=== PATIENT | male | born 1975 | race African-American/Black ===

== ENCOUNTER 2024-02-28 13:57 | Outpatient (AMB) | payer MEDICARE, MEDICAID, SELFPAY ==
--- NOTE | 2024-02-28 14:05 | HO.SPINEOV ---
Intake Visit Reasons: Back pain and right hand numbness Intake Note: Mr. Kelly is here today c/o back pain and right hand numbness. Domain Architect Required: No Assessment & Plan Assessment & Plan (1) Cervical radiculopathy: Code(s): M54.12 - Radiculopathy, cervical region Category: Medical (2) Neuroforaminal stenosis of cervical spine: Code(s): M48.02 - Spinal stenosis, cervical region Category: Medical (3) Status post cervical spinal fusion: Code(s): Z98.1 - Arthrodesis status Category: Surgical Plan Dear colleague Thank you for referring Hilario Kelly to the office today with a chief complaint of predominantly right arm pain and numbness. HPI: This 48-year-old male underwent a C5-6 anterior diskectomy and fusion in 2019 with good success. He returns to my clinic with progressive symptoms of numbness and pain in predominantly the right arm. Specifically he complains of pain in his shoulder blade and in his axilla and a constant numbness in his right arm involving his whole arm and hand. He also drops objects. The left arm goes intermittently numb, especially at night. He denies symptoms of his lower extremities. Physical Exam: Pleasant male. Spurling sign produces pain in the right shoulder blade and neck Tinel is negative. Lhermitte sign is negative. Motor exam is 5/5, sensory exam is grossly intact. No hyperreflexia or pathological reflexes. Gait is undisturbed. Radiological Studies: MRI done at [facility] on 02/08/2024 shows uncovertebral spurring at C3-4 with severe bilateral foraminal narrowing. At C6-7 there is bilateral moderate to severe C7 foraminal narrowing and at C7-T1 there is predominantly right C8 foraminal narrowing. Impression/Plan: This patient is suffering from a bilateral cervical radiculopathy, with the right side is much more involved than the left side. Clinically it points towards the C7 or C8 nerve root. The pain in the axilla may actually point more towards the C8 nerve root. I would like to obtain an EMG to see if we can localize the abnormalities to C7 or C8. The patient will return to my clinic when the study is done. He would be a good candidate for an artificial disc. Thank you for allowing me to participate in your patients care. total time spent was 50 minutes in counseling ,coordination of plan, personal review of imaging, surgical decision making and subsequent plan Bayron Mullins MD, PhD Spine Fellowship Trained Neurosurgeon Director, [facility] [place] [facility] Coding Level of Care Code New Pt Level 4 (52021) Diagnoses Cervical radiculopathy M54.12 Neuroforaminal stenosis of cervical spine M48.02 Status post cervical spinal fusion Z98.1
== END 2024-02-28 14:57 | disposition home or self-care (01) ==
LOC: HO.HNS 14:04
PROVIDERS: PCP Physician Assistant Medical; Visit Provider Neurological Surgery
DX: M54.12 Radiculopathy, cervical region (principal); M48.02 Spinal stenosis, cervical region; Z98.1 Arthrodesis status
CPT/HCPCS: 99204

== ENCOUNTER → 2024-02-28 14:04 | Outpatient (BNVA) | payer MEDICARE, MEDICAID, SELFPAY | PROVIDERS: PCP Physician Assistant Medical; Visit Provider Neurological Surgery | DX: M48.02 Spinal stenosis, cervical region (principal); M54.12 Radiculopathy, cervical region; Z98.1 Arthrodesis status | CPT/HCPCS: 99202 ==

== ENCOUNTER 2024-03-12 10:04 | Outpatient (REF) | payer MEDICARE, MEDICAID, SELFPAY ==
--- NOTE | 2024-03-12 10:06 | EMG_ITS ---
Right median and ulnar motor and sensory studies were performed. Right radial sensory and median and lateral antecubital brachial sensory studies were performed and needle examination was performed. IMPRESSION: [id number] right median neuropathy across carpal tunnel. MD MIREILLE Mauricio/ROBERTA / [id number]
== END 2024-03-12 10:05 | disposition home or self-care (01) ==
LOC: HO.NEURO 10:04
PROVIDERS: PCP Physician Assistant Medical; Visit Provider Neurological Surgery
DX: M54.12 Radiculopathy, cervical region (principal); M48.02 Spinal stenosis, cervical region
CPT/HCPCS: 95886; 95910

== ENCOUNTER → 2024-05-23 10:55 | Outpatient (BNV) | payer MEDICARE, MEDICAID, SELFPAY | PROVIDERS: PCP Physician Assistant Medical; Visit Provider Internal Medicine | DX: Z01.818 Encounter for other preprocedural examination (principal) | CPT/HCPCS: 93010 ==

== ENCOUNTER 2024-05-31 14:32 | Outpatient (AMB) | payer MEDICARE, MEDICAID, SELFPAY ==
--- NOTE | 2024-05-31 14:40 | A.SPINEOV_ITS ---
Intake Visit Reasons: Discuss Surgery Intake Note: Mr. Kelly is here to discuss surgery. Banquet Server Required: No Allergies No Known Allergies Allergy (Verified 05/22/24 14:16) Coding
--- NOTE | 2024-05-31 14:56 | HO.SPINEOV ---
Intake Visit Reasons: Discuss Surgery Allergies No Known Allergies Allergy (Verified 05/22/24 14:16) Assessment & Plan Assessment & Plan (1) Cervical radiculopathy: Code(s): M54.12 - Radiculopathy, cervical region Category: Medical Plan Dear colleague, On 05/31/2024 I saw for preoperative visit Varsha Kelly. He is scheduled to undergo total disc arthropathy C6-7 on June 06. We went over the procedure possible complications and expected postoperative course. I made clear that the weakness in his hand may not improve. All questions were answered satisfactorily. I spent 20 minutes in his consult. Bayron Mullins MD, PhD Spine Fellowship Trained Neurosurgeon Director, [facility] [place] [facility] Coding Level of Care Code Est Pt Level 2 (69995) Diagnoses Cervical radiculopathy M54.12
== END 2024-05-31 15:01 | disposition home or self-care (01) ==
PROVIDERS: PCP Physician Assistant Medical; Visit Provider Neurological Surgery
DX: M54.12 Radiculopathy, cervical region (principal)
CPT/HCPCS: 99212

== ENCOUNTER → 2024-05-31 14:32 | Outpatient (BNVA) | payer MEDICARE, MEDICAID, SELFPAY | PROVIDERS: PCP Physician Assistant Medical; Visit Provider Neurological Surgery | DX: M54.12 Radiculopathy, cervical region (principal) | CPT/HCPCS: 99212 ==

== ENCOUNTER 2024-06-06 07:54 | Day surgery (SDC) | payer MEDICARE, MEDICAID, SELFPAY ==
--- NOTE | 2024-05-23 | ECG_ITS ---
Test Reason : pre op Blood Pressure : / mmHG Vent. Rate : 066 BPM Atrial Rate : 066 BPM P-R Int : 140 ms QRS Dur : 070 ms QT Int : 374 ms P-R-T Axes : 061 059 063 degrees QTc Int : 392 ms Normal sinus rhythm Normal ECG No previous ECGs available Referred By: Tatiana Funes Electronically Signed By:CHRYSTAL BEEBE
[2024-05-23 10:00] VITALS: BP 169/88; PULSE 77; RESP 20; O2SAT 100; BMI 30.6
--- NOTE | 2024-05-23 10:20 | P.CONAN_ITS ---
Documented by User: Tatiana Funes NP 06/04/24 14:13 HPI - Anesthesia Eval Consult details Narrative: 49yo M for C6-7 Cervical Total Disc Arthroplasty RADHA: No CPAP Smoker: ~ 6 cigs daily ETOH: 6 beers daily. Instructed slow decrease preop. GERD: ppi covers PMFSH Active Problems Active Problems: All Active Problems Status post cervical spinal fusion (Acute) Neuroforaminal stenosis of cervical spine (Acute) Cervical radiculopathy (Acute) Past Medical History Medical History Alcohol use disorder Eczema Sleep apnea Tobacco use disorder GERD (gastroesophageal reflux disease) Hx of flexible sigmoidoscopy Diverticulitis Elevated cholesterol HTN (hypertension) Family History Family history of problems with anesthesia: No Surgical History Surgical History Hx of cervical discectomy H/O colonoscopy History of colon resection Hx of hand surgery Hx of fusion of cervical spine History of Problems with Anesthesia: No Social History Social History Are you a primary rn care transition to a significant other at home: No Do you presently have visiting nurse or other home services: No Patient Tobacco Use Status: Current everyday Tobacco user Tobacco use type: Cigarette Cigarettes Per Day: 6 Years Smoked: 30 Use of substances other than those prescribed or required for medical reasons: Yes Substance Use Frequency: Occasionally Have you been hit, kicked, punched, or otherwise hurt by someone within the past year? If so, by whom?: No Are you DNR?: No Advance Directives Information Provided: Yes (as above noted) Advance Directives on File: No Recently lost weight without trying: No Nutrition Risks: No Nutritional Risk Poor oral hygiene: No (upper & lower partials) Meds Allergies Allergy/AdvReac Type Severity Reaction Status Date / Time No Known Allergies Allergy Verified 05/22/24 14:16 Home Medications ?Medication ?Instructions ?Recorded ?Confirmed ?Last Taken ?Type amlodipine 10 mg tablet 10 mg PO QAM 05/22/24 05/23/24 06/06/24 History atorvastatin 80 mg tablet 80 mg PO QAM 05/22/24 05/23/24 Unknown History cyclobenzaprine 10 mg tablet 10 mg PO TID PRN muscle spasm 05/22/24 05/23/24 Unknown History fluticasone propionate 50 2 spray intranasal QAM PRN Nasal 05/22/24 05/23/24 Unknown History mcg/actuation nasal Congestion spray,suspension gabapentin 300 mg capsule 300 mg PO BID 05/22/24 05/23/24 Unknown History losartan 25 mg tablet 25 mg PO QAM 05/22/24 05/23/24 Unknown History oxycodone-acetaminophen 5 mg-325 1 tab PO Q6H PRN Pain 05/22/24 05/23/24 History mg tablet pantoprazole 20 mg tablet,delayed 20 mg PO QAM 05/22/24 05/23/24 06/06/24 History release betamethasone dipropionate 0.05 % 1 appl topical BID 05/23/24 05/23/24 Unknown History topical cream Exam Height,Weight and Vital Signs: Height 6 ft Weight 102.3 kg Last Vital Signs Pulse 77 05/23/24 10:00 Resp 20 05/23/24 10:00 BP 169/88 H 05/23/24 10:00 Pulse Ox 100 05/23/24 10:00 O2 Del Method Room Air 05/23/24 10:00 Pertinent Lab Results Pertinent Lab Results: Lab Results 05/23/24 Range/Units 10:50 WBC 10.6 (4.8-10.8) X10*3/uL RBC 5.00 (4.60-5.80) X10*6/uL Hgb 14.8 (14.0-18.0) g/dl Hct 44.0 (42.0-52.0) % MCV 88.0 (80.0-98.0) fL MCH 29.6 (27.0-33.0) pg MCHC 33.6 (31.0-36.0) g/dl RDW 14.8 (11.0-16.0) % Plt Count 353 (160-400) X10*3/uL MPV 10.3 (9.4-12.4) fL Absolute Nucleated RBC 0.000 (0.0-0.012) X10*3/uL Nucleated RBC % (auto) 0.0 (0.0-0.2) /100WBC Sodium 139 (135-145) mmol/L Potassium 4.1 (3.3-5.1) mmol/L Chloride 104 (96-108) mmol/L Carbon Dioxide 28 (22-29) mmol/L Anion Gap 11 L (12-20) BUN 12 (9-16) mg/dL Creatinine 0.91 (0.5-1.4) mg/dL Estim Creat Clear Calc 121.5 Estimated GFR > 60 Random Glucose 100 (60-115) mg/dL Calcium 9.8 (8.4-10.2) mg/dL Narrative Narrative: EKG 05/2024 Vent. Rate : 066 BPM Atrial Rate : 066 BPM P-R Int : 140 ms QRS Dur : 070 ms QT Int : 374 ms P-R-T Axes : 061 059 063 degrees QTc Int : 392 ms Normal sinus rhythm Normal ECG No previous ECGs available Airway Mallampati Class: II TM Dist: >3cm Neck ROM: Limited Partial: Upper and Lower Heart: RRR Lungs: CTAB Assessment and Plan Assessment Anesthesia Assessment: Anesthesia Plan Discussed, Smoking Cess. Discussed and PAT Visit Final Anesthetic Review Family History of Problems with Anesthesia: No History of Problems with Anesthesia: No Documented by User: Yael Rivas MD 06/06/24 09:32 [facility] Past Medical History Medical History Alcohol use disorder Eczema Sleep apnea Tobacco use disorder GERD (gastroesophageal reflux disease) Hx of flexible sigmoidoscopy Diverticulitis Elevated cholesterol HTN (hypertension) Surgical History Surgical History Hx of cervical discectomy H/O colonoscopy History of colon resection Hx of hand surgery Hx of fusion of cervical spine Social History Social History Are you a primary rn care transition to a significant other at home: No Do you presently have visiting nurse or other home services: No Patient Tobacco Use Status: Current everyday Tobacco user Tobacco use type: Cigarette Cigarettes Per Day: 6 Years Smoked: 30 Use of substances other than those prescribed or required for medical reasons: Yes Substance Use Frequency: Occasionally Have you been hit, kicked, punched, or otherwise hurt by someone within the past year? If so, by whom?: No Are you DNR?: No Advance Directives Information Provided: Yes (as above noted) Advance Directives on File: No Recently lost weight without trying: No Nutrition Risks: No Nutritional Risk Poor oral hygiene: No (upper & lower partials) Meds Allergies Allergy/AdvReac Type Severity Reaction Status Date / Time No Known Allergies Allergy Verified 05/22/24 14:16 Home Medications ?Medication ?Instructions ?Recorded ?Confirmed ?Last Taken ?Type amlodipine 10 mg tablet 10 mg PO QAM 05/22/24 05/23/24 06/06/24 History atorvastatin 80 mg tablet 80 mg PO QAM 05/22/24 05/23/24 Unknown History cyclobenzaprine 10 mg tablet 10 mg PO TID PRN muscle spasm 05/22/24 05/23/24 Unknown History fluticasone propionate 50 2 spray intranasal QAM PRN Nasal 05/22/24 05/23/24 Unknown History mcg/actuation nasal Congestion spray,suspension gabapentin 300 mg capsule 300 mg PO BID 05/22/24 05/23/24 Unknown History losartan 25 mg tablet 25 mg PO QAM 05/22/24 05/23/24 Unknown History oxycodone-acetaminophen 5 mg-325 1 tab PO Q6H PRN Pain 05/22/24 05/23/24 06/06/24 History mg tablet pantoprazole 20 mg tablet,delayed 20 mg PO QAM 05/22/24 05/23/24 06/06/24 History release betamethasone dipropionate 0.05 % 1 appl topical BID 05/23/24 05/23/24 Unknown History topical cream Assessment and Plan Final Anesthetic Review NPO: Yes ASA Class: III Final Preanesthetic Review: No Changes in Pt Med Stat, Meds/Allgs Chart Reviewed, Consent Obtained/Reviewed and Anes Risks/Benef Reviewed Patient Risk: Intermediate Procedure Risk: Intermediate Anesthetic Plan Anesthetic Plan: GA Disposition: Standard PACU
[2024-05-23 11:46] LABS: Hemoglobin 14.8 g/dl (14.0-18.0); Mean Corpuscular HGB Conc 33.6 g/dl (31.0-36.0); Mean Corpuscular Hemoglobin 29.6 pg (27.0-33.0); Mean Platelet Volume 10.3 fL (9.4-12.4); Platelet Count 353 X10*3/uL (160-400); Red Cell Distribution Width 14.8 % (11.0-16.0); White Blood Count 10.6 X10*3/uL (4.8-10.8)
[2024-05-23 12:19] LABS: Anion Gap 11 (12-20); Blood Urea Nitrogen 12 mg/dL (9-16); Calcium 9.8 mg/dL (8.4-10.2); Carbon Dioxide 28 mmol/L (22-29); Chloride 104 mmol/L (96-108); Creatinine Clr Calc Pharmacy 121.5; Estimated Glomerular Filt Rate > 60; Glucose Random 100 mg/dL (60-115); Potassium 4.1 mmol/L (3.3-5.1); Sodium 139 mmol/L (135-145)
[2024-06-06] VITALS (17 sets, daily range): BP systolic 158–182; BP diastolic 85–102; PULSE 72–107; RESP 0–22; TEMP 36.5–37.3; O2SAT 93–100; BMI 30.1
--- NOTE | 2024-06-06 07:07 | P.DS_ITS ---
DS: Providers Provider Date of Service: 06/06/24 Date of discharge: 06/06/24 Primary care physician: MAURICIO Rocha Admitting clinician: Bayron Mullins DS: Diagnosis Discharge Diagnosis (1) Neuroforaminal stenosis of cervical spine: Status: Acute DS: Summary Time Attestation Discharge Coordination Time (in mins): 7 Quality: Safe Use of Opioids Does Pt have an Active Cancer Diagnosis on the Problem List?: No Quality: Stroke Does the patient have a stroke diagnosis?: No Physical Exam Vital Signs: Vital Signs: Last Vital Signs Pulse 77 05/23/24 10:00 Resp 20 05/23/24 10:00 BP 169/88 H 05/23/24 10:00 Pulse Ox 100 05/23/24 10:00 O2 Del Method Room Air 05/23/24 10:00 BMI result Body Mass Index 30.6 Discharge Plan Discharge Patient Disposition: Home, Self-Care Referrals: Otoniel Zepeda PA [Primary Care Provider] - 1 Week Discharge Medications: Continued cyclobenzaprine 10 mg tablet 10 mg PO TID PRN (Reason: muscle spasm) atorvastatin 80 mg tablet 80 mg PO QAM pantoprazole 20 mg tablet,delayed release (DR/EC) 20 mg PO QAM amlodipine 10 mg tablet 10 mg PO QAM losartan 25 mg tablet 25 mg PO QAM gabapentin 300 mg capsule 300 mg PO BID fluticasone propionate 50 mcg/actuation spray,suspension 2 spray intranasal QAM PRN (Reason: Nasal Congestion) betamethasone dipropionate 0.05 % cream 1 appl topical BID Held oxycodone-acetaminophen 5-325 mg tablet 1 tab PO Q6H PRN (Reason: Pain) Hold Instructions: Resume on 07/07/24. Discharge Orders: Discharge Order (Routine); Ordered 06/06/24 Ordered By: Andrei Hunter Diet: Advance to usual diet Activity on Discharge: As tolerated Activity Restrictions/Additional Instructions: After your spinal surgery we ask you to observe the following restrictions/guidelines: Activity: It is normal to feel some discomfort as you increase your activity, but that will improve with time. We ask you avoid heavy lifting or acitivities that cause pain. As a general rule, 8lbs is a safe limit for lifting right after surgery. Walk as much as you feel comfortable but not to exhaustion. You will feel extra tired the first few days after surgery. Stay well hydrated. It is OK to walk up and down stairs You may return to driving when you are off narcotics (such as vicodin, oxycodone, dilaudid, etc), and you are back to normal functional capacity. If you have any concerns please check with office before driving. Return to work is specific to each patient and each surgery, so please speak with your doctor/PA at first follow up. Please bring paperwork such as FMLA at that time if you need it filled out. Medications: Please continue taking the 5mg Percocet that was prescribed on 05/23/24 for a total quantity of 112 (28 days worth). In addition to this for optimum pain control, it is best to start with a combination of 500 mg of Tylenol every 4 hours with 600 mg of Motrin every 8 hours, and use narcotics as needed in between for breakthrough pain. We will give you a short supply of narcotics after surgery (usually one weeks worth). If you need more please call the office but do not use more than prescribed. You will need to give our office 48 hours notice if you need narcotics refilled and we do not fill narcotics on weekends or evenings. If you are on a narcotic, it is a good idea to take a stool softener such as colace or senna to avoid constipation If you take blood thinner such as aspirin, Plavix, Coumadin, Effient, Eliquis etc for conditions such as Afib, DVT, Pulmonary embolus, coronary disease, stents etc please speak with your surgeon about specific details as to when you can resume these medications. You can resume NSAIDs on post op day 1 (eg: Motrin, Naproxen, etc). Follow up: Please call the office, , after surgery to arrange a 3 week follow up for wound check. Wound Care: You may remove your dressing on the first day after surgery. ?You may ?leave open to air. Please do not remove the steri strips underneath. they will fall off on their own in one week. IT IS NORMAL FOR THE WOUND TO OOZE OR BE BLOODY FOR A FEW DAYS AFTER SURGERY. ?IF THIS HAPPENS JUST PLACE NEW DRESSING OVER IT TO AVOID STAINING CLOTHES. You may shower on post op day # 1 We ask that you do not let the water soak the wound. If it does get wet, just towel dry lightly. Please do not scrub your incision or place any type of chemical/ointment on the wound. No tub baths, pools or jacuzzis for one month. If you have any leaking or redness from your wound, or fevers, please call office Print Language: Norwegian Discharge Date/Time: 06/06/24 14:40
[2024-06-06] MEDS: Lactated Ringers 1,000 ML 100 ML IVCONT (08:35)
[2024-06-06] MEDS: Gabapentin 300 MG CAPSULE PO (08:41)
[2024-06-06] MEDS: methocarbamoL 750 MG TABLET PO (08:41)
--- NOTE | 2024-06-06 09:20 | MHC.SHP ---
Pre-Procedural Eval Section A - 24 Hr Update-Section A only Date of Service: 06/06/24 The patient is an INPATIENT: No Section B - Complete if H&P > 30 days Chief Complaint: Arthrodesis status,radiculopathy, Details of Present Illness: cervical radiculopathy Allergies: Allergies Allergy/AdvReac Type Severity Reaction Status Date / Time No Known Allergies Allergy Verified 05/22/24 14:16 Review of Systems Sugical H&P ROS: Negative: Constitution, Cardiovascular, Respiratory, Neurological, Psychiatric, Hem-Onc, Allergic/Immunologic, Gastrointestinal, Genitourinary, Integumentary, Endocrine and Eyes/Ears/Nose/Throat and Yes, Specify: Musculoskeletal (handweakness) Exam Surgical H&P Exam: Normal: HEENT, Normal: Heart, Normal: Lungs, Normal: Extremities, Normal: Abdomen and Normal: Skin and Significant Findings: Neurological (right handweakness) Plan Diagnosis/Plan: Unchanged I have reviewed the history and physical and performed a pertinent physical examination on my patient. No changes have occurred unless specified. Total disc arthroplasty C6-7 Time Spent With Patient Time: Total time managing care of this patient today __5__ minutes.
--- NOTE | 2024-06-06 12:06 | PM.DS ---
DS: Providers Provider Date of Service: 06/06/24 Primary care physician: MAURICIO Rocha DS: Diagnosis Discharge Diagnosis (1) Neuroforaminal stenosis of cervical spine: Status: Acute DS: Summary Time Attestation Discharge Coordination Time (in mins): 15 Quality: Safe Use of Opioids Does Pt have an Active Cancer Diagnosis on the Problem List?: No Quality: Stroke Does the patient have a stroke diagnosis?: No Physical Exam Vital Signs: Vital Signs: Last Vital Signs Temp 99.2 F 06/06/24 08:27 Pulse 107 H 06/06/24 08:27 Resp 16 06/06/24 08:27 BP 166/91 H 06/06/24 08:27 Pulse Ox 99 06/06/24 08:27 O2 Del Method Room Air 06/06/24 08:27 BMI result Body Mass Index 30.1 Discharge Plan Discharge Patient Disposition: Home, Self-Care Referrals: Otoniel Zepeda PA [Primary Care Provider] - 1 Week Discharge Medications: Continued cyclobenzaprine 10 mg tablet 10 mg PO TID PRN (Reason: muscle spasm) atorvastatin 80 mg tablet 80 mg PO QAM pantoprazole 20 mg tablet,delayed release (DR/EC) 20 mg PO QAM amlodipine 10 mg tablet 10 mg PO QAM losartan 25 mg tablet 25 mg PO QAM gabapentin 300 mg capsule 300 mg PO BID fluticasone propionate 50 mcg/actuation spray,suspension 2 spray intranasal QAM PRN (Reason: Nasal Congestion) betamethasone dipropionate 0.05 % cream 1 appl topical BID Held oxycodone-acetaminophen 5-325 mg tablet 1 tab PO Q6H PRN (Reason: Pain) Hold Instructions: Resume on 07/07/24. Discharge Orders: Discharge Order (Routine); Ordered 06/06/24 Ordered By: Andrei Hunter Diet: Advance to usual diet Activity on Discharge: As tolerated Activity Restrictions/Additional Instructions: After your spinal surgery we ask you to observe the following restrictions/guidelines: Activity: It is normal to feel some discomfort as you increase your activity, but that will improve with time. We ask you avoid heavy lifting or acitivities that cause pain. As a general rule, 8lbs is a safe limit for lifting right after surgery. Walk as much as you feel comfortable but not to exhaustion. You will feel extra tired the first few days after surgery. Stay well hydrated. It is OK to walk up and down stairs You may return to driving when you are off narcotics (such as vicodin, oxycodone, dilaudid, etc), and you are back to normal functional capacity. If you have any concerns please check with office before driving. Return to work is specific to each patient and each surgery, so please speak with your doctor/PA at first follow up. Please bring paperwork such as FMLA at that time if you need it filled out. Medications: Please continue taking the 5mg Percocet that was prescribed on 05/23/24 for a total quantity of 112 (28 days worth). In addition to this for optimum pain control, it is best to start with a combination of 500 mg of Tylenol every 4 hours with 600 mg of Motrin every 8 hours, and use narcotics as needed in between for breakthrough pain. We will give you a short supply of narcotics after surgery (usually one weeks worth). If you need more please call the office but do not use more than prescribed. You will need to give our office 48 hours notice if you need narcotics refilled and we do not fill narcotics on weekends or evenings. If you are on a narcotic, it is a good idea to take a stool softener such as colace or senna to avoid constipation If you take blood thinner such as aspirin, Plavix, Coumadin, Effient, Eliquis etc for conditions such as Afib, DVT, Pulmonary embolus, coronary disease, stents etc please speak with your surgeon about specific details as to when you can resume these medications. You can resume NSAIDs on post op day 1 (eg: Motrin, Naproxen, etc). Follow up: Please call the office, , after surgery to arrange a 3 week follow up for wound check. Wound Care: You may remove your dressing on the first day after surgery. ?You may ?leave open to air. Please do not remove the steri strips underneath. they will fall off on their own in one week. IT IS NORMAL FOR THE WOUND TO OOZE OR BE BLOODY FOR A FEW DAYS AFTER SURGERY. ?IF THIS HAPPENS JUST PLACE NEW DRESSING OVER IT TO AVOID STAINING CLOTHES. You may shower on post op day # 1 We ask that you do not let the water soak the wound. If it does get wet, just towel dry lightly. Please do not scrub your incision or place any type of chemical/ointment on the wound. No tub baths, pools or jacuzzis for one month. If you have any leaking or redness from your wound, or fevers, please call office Print Language: Azerbaijani
--- NOTE | 2024-06-06 12:09 | P.OP_ITS ---
Operative Note Operative Note Date of Service: 06/06/24 Narrative: Preoperative Diagnosis: Right Cervical radiculopathy with hand weakness Procedure : C6-7 total disc arthropathy Informed Consent was obtained for this operation. I have explained the nature, purpose and benefits of the operation. I have discussed the risks and benefit of the operation including possible complications or adverse events with patient/family. Alternative(s) were discussed with the patient with their re lative benefits and risks as well as the consequences of not accepting the operation were included in obtaining consent. Surgeon: MENDEL NO MD, PHD Procedure Assisted By: madelyn Grover Description of Procedure: This patient is suffering from right arm pain and right hand weakness. The MRI shows adjacent degenerative disc disease after a C5-C6 fusion with [id number] foraminal stenosis The patient was offered a total disc arthropathy C6-7. The procedure complications were explained. The patient was consented. The patient was brought to the operating room and endotracheally intubated. The patient was put in supine position with slight extension of the neck. Prep and drape was done followed by timeout. A mid cervical incision was made followed by opening of the platysma. The prevertebral fascia was reached following the natural planes while the physician assistant toddler teacher provided manual retraction. The prevertebral fascia was opened to expose the disc space. A spina l needle was placed in the disk space to confirm the correct level with xray. The longus colli muscles were released bilaterally and a self retaining retractor was inserted. Two Balm pins were placed in the C6 and C7 vertebral bodies parallel to the endplates and distraction was give over the interspace. The discectomy was completed toward the posterior annulus of the disc. The microscope was brought in. The remainder of the discectomy was completed. The posterior ligament was opened and resected to expose the underlying dura. Bilateral foraminotomies were done. A trial implant was inserted to determine the correct implant size is. Then an artificial disc of sentinel spine of 17 x 16 and 6 mm height was inserted under fluoroscopic guidance. Final x-rays in AP and lateral projection showed a satisfactory position of the implant. The physician assistant toddler teacher took over. The Balm pin was removed. Hemostasis was done. He closed the incision in 2 layers with a 3-0 Vicryl. Steri-Strips used to approximate incision. An OpSite with Tegaderm was used to cover the incision. All sponge and needle counts were correct. Patient was extubated and transported in stable is to recovery room. Anesthesia: General Estimated Blood Loss (ml): 30 mL Duration of Surgery: 60 minutes Postoperative Plan: Discharge home Complications: None
[2024-06-06] MEDS: HYDROmorphone HCl 0.5 MG/0.5 ML SYRINGE 0.25 MG IVPUSH ×8 (12:54→13:31)
[2024-06-06] MEDS: oxyCODONE HCl Immed Release 5 MG TABLET PO (13:46)
== END 2024-06-06 14:40 | disposition home or self-care (01) ==
LOC: HO.SSS 07:55
PROVIDERS: Nurse Practitioner; PCP Physician Assistant Medical; Visit Provider Neurological Surgery
PROC: (CPT 22856; principal; 2024-06-06 11:10)
DX: M54.12 Radiculopathy, cervical region (principal); Z98.1 Arthrodesis status; G89.29 Other chronic pain; I10 Essential (primary) hypertension; G47.33 Obstructive sleep apnea (adult) (pediatric); Z79.51 Long term (current) use of inhaled steroids; Z79.899 Other long term (current) drug therapy; F17.210 Nicotine dependence, cigarettes, uncomplicated
CPT/HCPCS: 22856; 36415; 80048; 85027; 93005; C1776; J0131; J0690; J1100; J1170; J2250; J2405; J2704; J3010

== ENCOUNTER → 2024-06-06 07:54 | Outpatient (BNV) | payer MEDICARE, MEDICAID, SELFPAY | PROVIDERS: PCP Physician Assistant Medical; Visit Provider Physician Assistant | DX: M48.02 Spinal stenosis, cervical region (principal) | CPT/HCPCS: 22856; 99499 ==

== ENCOUNTER 2024-07-01 09:16 | Outpatient (AMB) | payer MEDICARE, MEDICAID, SELFPAY ==
--- NOTE | 2024-07-01 10:20 | HO.SPINEOV ---
Intake Visit Reasons: 1st post op Intake Note: Mr. Kelly is here today for his 1st post-op visit. Gas Or Petroleum Operator Required: No Allergies No Known Allergies Allergy (Verified 05/22/24 14:16) Assessment & Plan Assessment & Plan (1) Neuroforaminal stenosis of cervical spine: Code(s): M48.02 - Spinal stenosis, cervical region Category: Medical (2) Cervical radiculopathy: Code(s): M54.12 - Radiculopathy, cervical region Category: Medical Plan Mr kelly is three weeks out from his total disc arthroplasty C6-7. He is still continuing to have some symptoms, some of which are new since surgery. More recently he has developed a numbing feeling over the left subscapular area with pain radiating into that spot. He does not have any dysphagia, no trouble swallowing after surgery. He is continuing to hernandez with numbness of his arms however. Mostly it at night and if he wakes up he can shake his arms and it seems to go away. He did have a previous overlapping diagnosis of carpal tunnel in his right hand in addition to the cervical radiculopathy. We discussed activity guidelines, restrictions and expectations after total disc arthroplasty. I told him if he is still continuing to have the pain and the numbness radiating into his subscapular area on the left which is a new symptom since surgery, I would like to get x-rays in a few weeks if it is not getting better. If it improves, we can just do a standard office visit as 6 week follow-up with x-rays. Otoniel Mullins MD, PhD [facility] Orders: Orders XR cervical spine 4V Today M54.12 - Radiculopathy, cervical region Coding Level of Care Code Global (90324) Diagnoses Neuroforaminal stenosis of cervical spine M48.02 Cervical radiculopathy M54.12
== END 2024-07-01 10:39 | disposition home or self-care (01) ==
PROVIDERS: PCP Physician Assistant Medical; Visit Provider Physician Assistant
DX: M48.02 Spinal stenosis, cervical region (principal); M54.12 Radiculopathy, cervical region
CPT/HCPCS: 99024

== ENCOUNTER → 2024-07-01 09:16 | Outpatient (BNVA) | payer MEDICARE, MEDICAID, SELFPAY | PROVIDERS: PCP Physician Assistant Medical; Visit Provider Physician Assistant | DX: M48.02 Spinal stenosis, cervical region (principal); M54.12 Radiculopathy, cervical region; Z47.89 Encounter for other orthopedic aftercare; Z98.890 Other specified postprocedural states | CPT/HCPCS: 99212 ==

== ENCOUNTER 2024-08-15 08:45 | Outpatient (REF) | payer MEDICARE, MEDICAID, SELFPAY | END 2024-08-15 08:46 | disposition home or self-care (01) | LOC: HO.HOSX 08:45 | PROVIDERS: PCP Physician Assistant Medical; Visit Provider Physician Assistant | DX: M54.12 Radiculopathy, cervical region (principal); Z98.1 Arthrodesis status | CPT/HCPCS: 72050; 99212 ==

== ENCOUNTER 2024-08-15 08:45 | Outpatient (AMB) | payer MEDICARE, MEDICAID, SELFPAY ==
--- NOTE | 2024-08-15 08:56 | A.SPINEOV_ITS ---
Intake Visit Reasons: 2nd post op with xrays Intake Note: Mr. Kelly is here today for his 2nd post op with xrays. Plc Engineer Required: No Allergies No Known Allergies Allergy (Verified 08/15/24 08:57) Assessment & Plan Assessment & Plan (1) Status post cervical spinal fusion: Code(s): Z98.1 - Arthrodesis status Category: Surgical Plan Procedure : C6-7 total disc arthropathy Hilario comes in today for his 2nd postoperative visit. To recap during his last visit he was reporting a numbing feeling over the left subscapular area with pain radiating into that spot, alongside numbness in his bilateral arms. Today, he reports good resolution of his previously documented symptoms. He states he still has some pain into the left shoulder/lateral left neck but feels this is also getting better with time. We discussed his difficulties with hand artificial flowers supervisor on the right side, he has known moderate carpal tunnel syndrome on the right. No new neurological deficits. The patient ambulates well and rises from a seated position without difficulty. His anterior incision site appears closed and well healing. There is no need for continued routine follow-up with Willy. I feel his residual symptoms will resolve in time. He is welcome to make a follow-up appointment with us to discuss a right-sided median nerve release if he would like to in the near future. Andrei Mullins MD,PhD [facility] Orders: Orders XR cervical spine 4V Today M54.12 - Radiculopathy, cervical region Coding Level of Care Code Global (10672) Diagnoses Status post cervical spinal fusion Z98.1
== END 2024-08-15 09:17 | disposition home or self-care (01) ==
LOC: HO.HNS 08:45
PROVIDERS: PCP Physician Assistant Medical; Visit Provider Physician Assistant
DX: Z98.1 Arthrodesis status (principal)
CPT/HCPCS: 99024

== ENCOUNTER 2024-12-25 14:19 | Outpatient (AMB) | payer MEDICARE, MEDICAID, SELFPAY ==
--- NOTE | 2024-12-25 14:51 | A.SPINEOV_ITS ---
Intake Visit Reasons: f/up evaluation cervical spine concerns Intake Note: Mr. Kelly is here today for a F/u of his cervical spine. Electrical Contractor Required: No Allergies No Known Allergies Allergy (Verified 08/15/24 08:57) Assessment & Plan Assessment & Plan (1) Neuroforaminal stenosis of cervical spine: Code(s): M48.02 - Spinal stenosis, cervical region Category: Medical Plan Dear colleague, On 12/25/2024, I saw for follow-up Hilario Kelly. He was complaining of bila teral cervical radiculopathy and right hand weakness for which he underwent a total disc arthropathy C6-15 May 2024. The left-sided symptoms disappeared. However, the weakness of his right hand continues to progress. Specifically, he has difficulty using his thumb and opening bottles. He also complains of cramps on the medial side of his lower arm and hand. He also has tingling and numbness of all fingers. On exam, Tinel is negative over the elbow and wrist. There is atrophy of the abductor pollicis muscle on the right side. Motor exam shows 4+ out of 5 weakness of the wrist extension, 4/5 weakness of the finger flexors, 4+ out of 5 of finger spreaders and a 3/5 of the abductor pollicis. Differential diagnosis would be C7, C8 cervical radiculopathy versus plexopathy. We have an EMG that only showed median nerve compression but no plexopathy. A hand surgeon gave him a steroid injection in the carpal tunnel without success. I think his symptoms are most likely related to the cervical spine. I would like to repeat an MRI of the cervical spine and follow-up. Spent 25 minutes in his consult for physical exam and discussing plan of care. Bayron Mullins MD, PhD Spine Fellowship Trained Neurosurgeon Director, [facility] Orders: Orders MR cervical spine wo con Today Z98.1 - Arthrodesis status Coding Level of Care Code Est Pt Level 3 (27425) Diagnoses Neuroforaminal stenosis of cervical spine M48.02
--- OUTSIDE RECORDS SUMMARY | 2024-12-25 16:39 | XMS_ITS | Encounter Summary ---
Author Organization [facility] Address [address] [place] [address] Care Team Providers Care Pelletizer Operator Name Role Phone Otoniel Zepeda Primary Care Provider [phone] Reason for Visit * Reason Comments Follow-up Pain, numbness/tingl ing; limited strength Encounter Details Date Type Department Care Team (Late st Contact Info) Description 12/10/2024 2:00 PM EST Office Visit Orthopedic Surgery - [place] 175 [facility] [address] [place] [phone] Arely Rodrigues MD 175 [facility] [address] [place] [address] Cervical spinal stenosis (Primary Dx); Numbness and tingling in both hands Social History Tobacco Use Types Packs/Day Years Used Date Smoking Tobacco: Some Days Cigarettes 0.3 21.8 Started: 2003 Smokeless Tobacco: Never Alcohol Use Standard Drinks/Week Comments Yes 191.7 (1 standard drink = 0.6 oz pure alcohol) Sex and Gender Information Value Date Recorded Sex Assigned at Not on file Legal Sex Male 8:23 PM EST Gender Identity Not on file Sexual Orientation Not on file documented as of this encounter Last Filed Vital Signs Vital Sign Reading Time Taken Comments Blood Pressure - - Pulse - - Temperature - - Respiratory Rate - - Oxygen Saturation - - Inhaled Oxygen Concentration - - Weight 102 kg (225 lb) 12/10/2024 1:59 PM EST Height 182.9 cm (6') 12/10/2024 1:59 PM EST Body Mass Index 30.52 12/10/2024 1:59 PM EST documented in this encounter Progress Notes * Arely Rodrigues MD - 12/10/2024 2:00 PM EST CHIEF COMPLAINT/REASON FOR VISIT: Follow-up for numbness and tingling. SUBJECTIVE: Patient was last seen in October. He had a cortisone shot in October. He says did not really make much of a difference overall. I had taken care of him sometime ago. Patient had presented with some complaints of persistent numbness and tingling in the hands particular on the right side. Symptoms radiated up to the elbow he also had some weakness in the right hand. Patient has had a prior carpal tunnel release done sometime ago on the right but not on the left. In addition the patient has had 3 neck surgeries. The last of which was in May 2024. Patient had an EMG done in 2021 which noted mild carpal tunnel on the right that. He has not had a more recent study. OBJECTIVE: Patient continues to have intact flexion extension of the fingers and of the thumb on both hands. He does not have any visible evidence of swelling of any of the joints. Patient's finger flexion extension strength is reasonable. On the right side thumb and index pinch strength is 5 out of 5. He is able to flex and extend AB at that of the fingers and circumduct the thumb. Subjectively patient notes some tingling in the arm when he holds it in certain positions. Finger abduction adduction is 5 out of 5. Patient has a negative Tinel's and Phalen's. It does not make the subjective report of tingling that he has in his fingers any worse. In examining the other arm on the left patient is also having some sensory alteration although subjectively not as dense on the left as it is on the right. He is able to flex and extend abduct and adduct the fingers. He has no tenderness over the cubital canal is present. No palpable subluxation. No muscle atrophy of the forearms. Patient is able to flex extend the elbows. He can lift his arms up. With his neck he is able to turn to the left and to the right about 45 degrees. He states when he leaves his head when this positions for too long and starts to get some pain down his trapezial areas in both arms. ASSESSMENT: 1. Cervical spinal stenosis 2. Numbness and tingling in both hands Patient with persistent symptoms. Also some weakness. This seems to be more than just carpal tunnel. I will need to talk to the neurosurgeon. We will try to reach out. In the meantime I recommended that he make a follow-up for 6 weeks just so we keep him in the next. He is in agreement. Arely Rodrigues MD documented in this encounter Plan of Treatment Upcoming Encounters Date Type Department Care Team (Late st Contact Info) Description 01/06/2025 9:30 AM EDT Office Visit Adult Medicine [address] [phone] Annelise Novak PA [address] [place] [address] 01/21/2025 3:00 PM EDT Office Visit Orthopedic Surgery [facility] [address] [phone] Arely Rodrigues MD [address] [phone] 04/08/2025 8:30 AM EDT Office Visit [address] [phone] Otoniel Zepeda PA [address] [place] [address] documented as of this encounter Visit Diagnoses Diagnosis Cervical spinal stenosis- Primary Spinal stenosis in cervical region Numbness and tingling in both hands documented in this encounter Care Teams Pelletizer Operator Relationship Specialty Start Date End Date Otoniel Zepeda PA [address] [place] [address] PCP - General Internal Medicine 02/02/21 documented as of this encounter
--- OUTSIDE RECORDS SUMMARY | 2024-12-25 16:40 | XMS_ITS | Clinical Summary ---
Author Organization [address] [facility] Address [address] [place] [address] Phone Care Team Providers Care Manager Wound Name Role Phone Otoniel Zepeda Primary Care Provider [phone] Allergies No known active allergies Medications betamethasone, augmented, (DIPROLENE-AF) 0.05 % cream Apply to affected areas up to twice a day sparingly. Do not use this medication for more than 2 weeks straight. 4 Active fluticasone propionate (FLONASE) 50 mcg/actuation nasal spray 2 Sprays by Nasal route daily. 4 Active losartan (COZAAR) 25 mg tablet Take 1 tablet (25 mg total) by mouth 1 (one) time each day. 4 Active amLODIPine (NORVASC) 10 mg tablet Take 1 tablet (10 mg total) by mouth 1 (one) time each day. 4 Active atorvastatin (LIPITOR) 80 mg tablet Take 1 tablet (80 mg total) by mouth 1 (one) time each day. 4 Active pantoprazole (PROTONIX) 20 mg EC tablet Take 1 tablet (20 mg total) by mouth 1 (one) time each day. 4 Active gabapentin (NEURONTIN) 300 mg capsule Take 1 capsule (300 mg total) by mouth 3 (three) times a day. 4 Active ketoconazole (NIZORAL) 2 % shampoo Apply to affected areas while showering twice weekly as needed. 4 Active oxyCODONE-acet aminophen (PERCOCET) 5-325 mg per tablet Take 1 tablet by mouth every 6 (six) hours if needed for severe pain. Max Daily Amount: 4 tablets 112 tablet 5 Active oxyCODONE-acet aminophen (PERCOCET) 5-325 mg per tablet Take 1 tablet by mouth every 6 (six) hours if needed for severe pain. Max Daily Amount: 4 tablets 112 tablet 5 11/28/19 25 Discontinu ed(Reorder ) Active Problems Problem Noted Date Diagnosed Date Numbness and tingling in both hands 11/06/2024 Gastroesophageal reflux disease without esophagi tis 03/27/2023 Cervical spinal stenosis 01/28/2020 Overview (08/27/2024): S/p C5-C6 fusion and diskectomy Internal hemorrhoids 08/07/2018 Tobacco use disorder 03/09/2017 Chronic back pain 02/06/2017 Chronic pain of left knee 02/06/2017 Smoking 05/03/2016 Diverticulitis of intestine without perforation or abscess without bleeding 10/12/2015 Erectile dysfunction 03/23/2012 CTS (carpal tunnel syndrome) 02/17/2011 Overview (08/27/2024): Last Assessment & Plan: Noted on nerve tests ( no surgery) Radiculitis, cervical 02/17/2011 Overview (08/27/2024): 04/19- MRI of cervical spine - moderate to severe right C7 foraminal stenosis. Dr Pierre; right posterior C6-7 microdiscectomy decompression Hyperlipidemia 12/30/2008 Essential hypertension, benign 12/27/2007 Encounters Date Type Department Care Team Description 12/17/2024 Telephone Orthopedic Surgery [address] [phone] Arely Rodrigues MD 12/10/2024 2:00 PM EST Office Visit Orthopedic Surgery [address] [phone] Arely Rodrigues MD Cervical spinal stenosis (Primary Dx); Numbness and tingling in both hands 11/05/2024 2:00 PM EST Office Visit Orthopedic Surgery - [place] [address] [facility] [address] [place] [address] Arely Rodrigues MD Numbness and tingling in both hands (Primary Dx); Numbness and tingling in right hand 10/08/2024 8:30 AM EST Office Visit Adult [address] [phone] Otoniel Zepeda PA Bilateral carpal tunnel syndrome (Primary Dx); Hyperlipidemia, unspecified hyperlipidemia type; Essential hypertension, benign; Gastroesophageal reflux disease without esophagitis; Tobacco use disorder; Need for tetanus, diphtheria, and acellular pertussis (Tdap) vaccine; Need for HPV vaccine from Last 3 Months Immunizations Name Administration Dates Next Due Tdap Tetanus diptheria acell ular pertussis (Boostrix; Adacel) 7yo and older 10/08/2024,06/03/2013 Surgical History Surgery Date Site/Laterality Comments COLONOSCOPY W/ BIOPSIES 02/04/2010 PROCEDURE: [place] COLONOSCOPY STOMA W/BIOPSY SINGLE/MULTIPLE; COMMENT: Up to cecum, good preparation, sigmoid diverticulosis, erythema in sigmoid secondary to diverticular disease-biopsy:normal, otherwise normal colon exam NECK SURGERY 06/20 PROCEDURE: HISTORICAL NECK SURGERY; COMMENT: Dr. Pierre - C6/7 posterior decomp OTHER SURGICAL HISTORY PROCEDURE: HISTORY OTHER; COMMENT: rt hand injury with reconstructive surgery 2003 COLONOSCOPY 11/18/2015 PROCEDURE: HISTORICAL COLONOSCOPY; COMMENT: Diverticulosis; otherwise negative. OTHER SURGICAL HISTORY 2015 PROCEDURE: [place] COLECTOMY PARTIAL W/ANASTOMOSIS CARPAL TUNNEL RELEASE Right PROCEDURE: [place] NEUROPLASTY &/TRANSPOS MEDIAN NRV CARPAL TUNNE; COMMENT: dr rodrigues FLEXIBLE SIGMOIDOSCOPY 08/07/2018 PROCEDURE: [place] SIGMOIDOSCOPY FLX DX W/COLLJ SPEC BR/WA IF PFRMD; COMMENT: tics and hemorrhoids OTHER SURGICAL HISTORY 11/15/2019 PROCEDURE: [place] ARTHRD ANT INTERBODY MIN DSC CRV BELOW C2; COMMENT: dr. ely Medical History Medical History Date Comments Hyperlipidemia DX:Hyperlipidemi a Family history of early CAD DX:F amily history of early CAD History of colonoscopy 11/18/2015 DX:Histor y of colonoscopy; COMMENT: Difficult colonoscopy 11/18/2015; moderate sedation in adequate; needs monitored anesthesia care. Family History Medical History Relation Name Comments Heart attack Father at age 45 , first mi in 30's Hypertension Father Relation Name Status Comments Brother 1 Alive Brother 2 Alive htn strokeat ag e 39 Father (Age 45) heart Mother Sister 1 Alive Sister 2 Alive Social History Tobacco Use Types Packs/Day Years Used Date Smoking Tobacco: Some Days Cigarettes 0.3 21.8 Started: 2003 Smokeless Tobacco: Never Tobacco Cessation:Ready to Q uit: Not Asked; Counseling Given: Not Answered Alcohol Use Standard Drinks/Week Comments Yes 191.7 (1 standard drink = 0.6 oz pure alcohol) Sex and Gender Information Value Date Recorded Sex Assigned at Not on file Legal Sex Male 8:23 PM EST Gender Identity Not on file Sexual Orientation Not on file Obstetrics History Last Filed Vital Signs Vital Sign Reading Time Taken Comments Blood Pressure 132/76 10/08/2024 8:45 AM EST Pulse 98 10/08/2024 8:45 AM EST Temperature 37.4 ??C (99.3 ??F) 10/08/2024 8:45 AM ES T Respiratory Rate 16 10/08/2024 8:45 AM EST Oxygen Saturation 98% 10/08/2024 8:45 AM EST Inhaled Oxygen Concentration - - Weight 102 kg (225 lb) 12/10/2024 1:59 PM EST Height 182.9 cm (6') 12/10/2024 1:59 PM EST Body Mass Index 30.52 12/10/2024 1:59 PM EST Plan of Treatment Upcoming Encounters Date Type Department Care Team (Late st Contact Info) Description 01/06/2025 9:30 AM EDT Office Visit Adult Medicine [address] [phone] Annelise Novak PA [address] [place], [place] 01/21/2025 3:00 PM EDT Office Visit Orthopedic Surgery - [place] [address] [phone] Arely Rodrigues MD [address] [phone] 04/08/2025 8:30 AM EDT Office Visit Adult Medicine [facility] [address] [place] [address] Otoniel Zepeda PA [address] [place] [address] Health Maintenance Due Date Last Done Comments Hepatitis B Vaccines (1 of 3 - 19+ 3-dose series) 1994 Pneumococcal Vaccine: Pediatrics (0 to 5 Years) and At-Risk Patients (6 to 64 Years) (1 of 2 - PCV) 1994 Depression Screening 09/17/2022 HIV Screening 09/17/2022 Medicare Annual Wellness Visit 09/17/2022 Social Influencers of Health Screening 09/17/2022 COVID-19 Vaccine (3 - 2023-2 5 season) 2024 05/30/2021, 05/09/2021 Hypertension/CHF/CAD Annual BMP Blood Test 06/25/2025 06/25/2024, 06/25/2024 Colorectal Cancer Screening: Colonoscopy 11/18/2025 11/18/2015 Cholesterol Screening (Lipid Panel) 06/25/2029 06/25/2024, 06/25/2024 DTaP,Tdap,and Td Vaccines (3 - Td or Tdap) 10/08/2034 10/08/2024, 06/03/2013 Hepatitis C Screening Completed 09/28/2005 HIB Vaccines Aged Out No longer eligi ble based on patient's age to complete this topic HPV Vaccines Aged Out No longer eligi ble based on patient's age to complete this topic Hepatitis A Vaccines Aged Out No long er eligible based on patient's age to complete this topic IPV Vaccines Aged Out No longer eligi ble based on patient's age to complete this topic Influenza Vaccine Discontinued MMR Vaccines Aged Out No longer eligi ble based on patient's age to complete this topic Meningococcal ACWY Vaccine Aged Out N o longer eligible based on patient's age to complete this topic Meningococcal B Vacine Aged Out No lo nger eligible based on patient's age to complete this topic RSV Immunization Patients Under 20 months Aged Out No longer eligible based on patient's age to complete this topic Varicella Vaccines Aged Out No longer eligible based on patient's age to complete this topic Procedures Procedure Name Priority Date/Time Associated Diagnosis Comments [place] INJECTION CARPAL TUNNEL THERAPEUTIC Routine 11/05/2024 2:00 PM EST Numbness and tingling in right hand EXTERNAL XRAY REPORT 10/01/2024 ANNUAL BMP BLOOD TEST Routine 06/25/2024 LIPID PANEL Routine 06/25/2024 HEPATITIS C SCREENING Routine 09/28/2005 from Last 3 Months or Most Recently Relevant to Health Maintenance Results * [place] INJECTION CARPAL TUNNEL THERAPEUTIC (11/05/2024 2:00 PM EST) Narrative Arely Rodrigues MD - 11/05/2024 2:00 PM EST Arely Rodrigues MD ? 11/06/2024 ??4:32 PM Hand / UE Inj/Asp: R carpal tunnel for carpal tunnel syndrome Indications: pain Details: 25 G needle, volar approach Medications: 40 mg triamcinolone acetonide 40 mg/mL Informed Consent: ??Laterality: ??Right ??Procedure/treatment, purpose, treatment alternatives, risks/potential complications and benefits explained: yes ?Patient agrees, verbalizes understanding, and wants to proceed: yes ?Consent given by: ??Patient ??Informed consent discussion completed by Physician/LYNDA with patient: ?? Verbal ??Pre-procedure timeout performed: yes ?? Result [facility] Arely Rodrigues MD IN CLINIC/BEDSIDE ORDERABLES Final Result * External Xray Report (10/01/2024) Anatomical Region Laterality Modality Radiographic Antonette ging Provider [facility] XR PROCEDURES Final Result * Annual BMP Blood Test (06/25/2024) Annual BMP Blood Test abstracted Dhara Stovall MD HEALTH MAINTENANCE Final Result * (ABNORMAL) Lipid panel (06/25/2024) LDL/HDL Ratio 4 0 - 4 Triglycerides 109 0 - 150 mg/dL Cholesterol 175 0 - 200 mg/dL HDL 41 >=40 mg/dL LDL Cholesterol 113(A) 0 - 100 mg/dL Blood Venous blood specimen / Unknown Historical Provider LAB BLOOD ORDERABLES Mary Ellen l Result * Hepatitis C Screening (09/28/2005) Hepatitis C Screening abstracted Historical Provider HEALTH MAINTENANCE Final Result from Last 3 Months or Most Recently Relevant to Health Maintenance Insurance MEDICARE MEDICAID - [place] Care Teams Manager Wound Relationship Specialty Start Date End Date Otoniel Zepeda PA [address] [place] [address] PCP - General Internal Medicine 02/02/21
--- OUTSIDE RECORDS SUMMARY | 2024-12-25 16:40 | XMS_ITS | Encounter Summary ---
Author Organization [facility] Address [address] [place] [address] Care Team Providers Care Building Maintenance Supervisor Name Role Phone Otoniel Zepeda Primary Care Provider [phone] [phone] Encounter Details Date Type Department Care Team ([facility] Contact Info) Description 12/17/2024 Telephone Orthopedic Surgery - [place] 175 [facility] [address] [place] [address] Arely Rodrigues MD 175 [facility] [address] [place] [phone] Social History Tobacco Use Types Packs/Day Years [...] on file documented as of this encounter Progress Notes * Arely Rodrigues MD - 12/17/2024 9:12 AM EDT Call made to Dr. Merdia's's office [phone]. I spoke to Andrei, one of the PAs and explained the situation. They will reach out to the patient toset up an appointment. documented in this encounter Plan of Treatment Upcoming Encounters Date Type Department Care Team ([facility] Contact Info) Description 01/06/2025 9:30 AM EDT Office Visit Adult Medicine [address] [phone] Annelise Novak PA [address] [place], [place] 01/21/2025 3:00 PM EDT Office Visit Orthopedic Surgery - [place] [address] [phone] Arely Rodrigues MD [address] [phone] 04/08/2025 8:30 AM EDT Office Visit Adult Medicine [address] [phone] Otoniel Zepeda PA [address] [place] [address] documented as of this encounter Visit Diagnoses Not on filedocumented in this encounter Care Teams Building Maintenance Supervisor Relationship Specialty Start Date End Date Otoniel Zepeda PA [address] [place] [address] PCP - General Internal Medicine 02/02/21 documented as of this encounter
== END 2024-12-25 15:17 | disposition home or self-care (01) ==
LOC: HO.HNS 14:19
PROVIDERS: PCP Physician Assistant Medical; Visit Provider Neurological Surgery
DX: M48.02 Spinal stenosis, cervical region (principal)
CPT/HCPCS: 99213

== ENCOUNTER → 2024-12-25 14:19 | Outpatient (BNVA) | payer MEDICARE, MEDICAID, SELFPAY | PROVIDERS: PCP Physician Assistant Medical; Visit Provider Neurological Surgery | DX: M48.02 Spinal stenosis, cervical region (principal) | CPT/HCPCS: 99212 ==

== ENCOUNTER → 2024-12-31 18:38 | Outpatient (BNV) | payer MEDICARE, MEDICAID, SELFPAY | PROVIDERS: PCP Physician Assistant Medical; Visit Provider Radiology Diagnostic Radiology | DX: M48.02 Spinal stenosis, cervical region (principal) | CPT/HCPCS: 72141 ==

== ENCOUNTER 2024-12-31 18:39 | Outpatient (REF) | payer MEDICARE, MEDICAID, SELFPAY ==
--- NOTE | ~2024-12-31 | MR_ITS ---
EXAMINATION: MR CERVICAL SPINE WITHOUT CONTRAST CLINICAL INFORMATION: Arthrodesis status. COMPARISON: MRI from an outside institution dated September 22, 2022. TECHNIQUE: MRI of the cervical spine was obtained using routine sequences without contrast. FINDINGS: Paramagnetic field distortion secondary to metallic hardware C5 7. No bone marrow STIR signal abnormality. Craniocervical junction is intact. No gross malalignment. Cervical spinal cord signal is normal. C2-3: Central disc osteophyte complex formation resulting in ventral deformity of the spinal cord. No cord compression. No neuroforamina stenosis. C3-4: Broad-based disc osteophyte compresses formation resulting in ventral deformity of the spinal cord reduced AP diameter. Bilateral neuroforamina narrowing on a multifactorial basis. C4-5: Central disc osteophyte complex formation resulting in ventral deformity of the spinal cord. No neuroforamina stenosis. C5-6: Postsurgical changes. Broad-based disc osteophyte complex formation abutting the cord. Left neuroforamina narrowing. C6-7: Postsurgical changes suggesting central spinal canal stenosis. Right lateral neuroforamina stenosis. C7-T1: Postsurgical changes. Reduced AP diameter of the central spinal canal. Right neuroforamina stenosis. No prevertebral compartment hematoma, mass or fluid collection. Flow-void signal within the main vessels is normal. MR/MR cervical spine wo con IMPRESSION: L2 level cervical spondylosis resulting in central spinal canal stenosis and bilateral neuroforamina stenosis at C3-4 C6-7 and C4-5 without cord edema and or myelopathy. Electronically signed by: Stevan Jain MD 01/01/2025 09:10 AM EDT
--- OUTSIDE RECORDS SUMMARY | 2024-12-31 20:12 | XMS_ITS | Encounter Summary ---
Author Organization [facility] Address [address] [place] [address] Care Team Providers Care Wet Char Conveyor Tender Name Role Phone Otoniel Zepeda Primary Care Provider +1 [phone] Reason for Visit * Reason Comments Follow-up Pain, numbness/tingl ing; limited strength Encounter Details Date Type Department Care Team (Late st Contact Info) Description 12/10/2024 2:00 PM EST Office Visit Orthopedic Surgery - [place] 175 [facility] 140 [place] [phone] Arely Rodrigues MD 175 [facility] 140 [place] [address] Cervical spinal stenosis (Primary Dx); [...] 9:30 AM EDT Office Visit Adult Medicine [address] [phone] Annelise Novak PA [address] [place] [address] 01/21/2025 3:00 PM EDT Office Visit Orthopedic Surgery [facility] [address] [phone] Arely Rodrigues MD [address] [phone] 04/08/2025 8:30 AM EDT Office Visit [address] [phone] Otoniel Zepeda PA [address] [place] [address] documented as of this encounter Visit Diagnoses Diagnosis Cervical spinal stenosis- Primary Spinal stenosis in cervical region Numbness and tingling in both hands documented in this encounter Care Teams Wet Char Conveyor Tender Relationship Specialty Start Date End Date Otoniel Zepeda PA [address] [place] [address] PCP - General Internal Medicine 02/02/21 documented as of this encounter
--- OUTSIDE RECORDS SUMMARY | 2024-12-31 20:12 | XMS_ITS | Encounter Summary ---
Author Organization [facility] Address [address] [place] [address] Care Team Providers Care Assistant Counsel Name Role Phone Otoniel Zepeda Primary Care Provider +1 [phone] Encounter Details Date Type Department Care Team ([facility] Contact Info) Description 12/17/2024 Telephone Orthopedic Surgery - [place] 175 [facility] 140 [place] [address] Arely Rodrigues MD 175 [facility] [address] [place] [phone] Social History Tobacco Use Types Packs/Day Years [...] 9:12 AM EDT Call made to Dr. Merida's's office [phone]. I spoke to Andrei, one of the PAs and explained the situation. They will reach out to the patient toset up an appointment. documented in this encounter Plan of Treatment Upcoming Encounters Date Type Department Care Team ([facility] Contact Info) Description 01/06/2025 9:30 AM EDT Office Visit Adult Medicine [address] [phone] Annelise Novak PA [address] [place], [place] 01/21/2025 3:00 PM EDT Office Visit Orthopedic Surgery - [place] [address] [phone] Arely Rodrigues MD [address] [phone] 04/08/2025 8:30 AM EDT Office Visit Adult Medicine [address] [phone] Otoniel Zepeda PA [address] [place] [address] documented as of this encounter Visit Diagnoses Not on filedocumented in this encounter Care Teams Assistant Counsel Relationship Specialty Start Date End Date Otoniel Zepeda PA [address] [place] [address] PCP - General Internal Medicine 02/02/21 documented as of this encounter
--- OUTSIDE RECORDS SUMMARY | 2024-12-31 20:12 | XMS_ITS | Clinical Summary ---
Author Organization 175 [facility] Address 175 [place] [address] Phone Care Team Providers Care Plant Technician Name Role Phone Otoniel Zepeda Primary Care Provider +1 -[phone] Allergies No known active allergies Medications betamethasone, [...] showering twice weekly as needed. 4 Active oxyCODONE-aceta minophen (PERCOCET) 5-325 mg per tablet Take 1 tablet by mouth every 6 (six) hours if needed for severe pain. Max Daily Amount: 4 tablets 112 tablet 5 Active Active Problems Problem Noted Date Diagnosed Date [...] Care Team Description 12/17/2024 Telephone Orthopedic Surgery [address] [address] Arely Rodrigues MD 12/10/2024 2:00 PM EST Office Visit Orthopedic Surgery [address] [phone] Arely Rodrigues MD Cervical spinal stenosis (Primary Dx); Numbness and tingling in both hands 11/05/2024 2:00 PM EST Office Visit Orthopedic [address] [phone] Arely Rodrigues MD Numbness and tingling in both hands (Primary Dx); Numbness and tingling in right hand 10/08/2024 8:30 AM EST Office Visit Adult Medicine [address] [phone] Otoniel Zepeda PA Bilateral carpal tunnel syndrome [...] Site/Laterality Comments COLONOSCOPY W/ BIOPSIES 02/04/2010 PROCEDURE: LA COLONOSCOPY STOMA W/BIOPSY SINGLE/MULTIPLE; COMMENT: Up to [...] otherwise negative. OTHER SURGICAL HISTORY 2015 PROCEDURE: LA COLECTOMY PARTIAL W/ANASTOMOSIS CARPAL TUNNEL RELEASE Right PROCEDURE: LA NEUROPLASTY &/TRANSPOS MEDIAN NRV CARPAL TUNNE; COMMENT: dr rodrigues FLEXIBLE SIGMOIDOSCOPY 08/07/2018 PROCEDURE: LA SIGMOIDOSCOPY FLX DX W/COLLJ SPEC BR/WA IF PFRMD; COMMENT: tics and hemorrhoids OTHER SURGICAL HISTORY 11/15/2019 PROCEDURE: LA ARTHRD ANT INTERBODY MIN DSC CRV BELOW [...] 9:30 AM EDT Office Visit Adult Medicine [address] [phone] Annelise Novak PA [address] [place], [place] 01/21/2025 3:00 PM EDT Office Visit Orthopedic Surgery - [place] [address] [phone] Arely Rodrigues MD [address] [phone] 04/08/2025 8:30 AM EDT Office Visit Adult Medicine [address] [phone] Otoniel Zepeda PA [address] [place] [address] Health Maintenance Due Date Last Done Comments [...] Procedure Name Priority Date/Time Associated Diagnosis Comments LA INJECTION CARPAL TUNNEL THERAPEUTIC Routine 11/05/2024 2:00 PM EST Numbness and tingling in right hand ANNUAL BMP BLOOD TEST Routine 06/25/2024 LIPID PANEL Routine 06/25/2024 HEPATITIS C SCREENING Routine 09/28/2005 from Last 3 Months or Most Recently Relevant to Health Maintenance Results * LA INJECTION CARPAL TUNNEL THERAPEUTIC (11/05/2024 2:00 PM EST) Arely Mullins MD - 11/05/2024 2:00 PM EST Arely [...] Verbal ??Pre-procedure timeout performed: yes ?? Result [facility] Arely Rodrigues MD IN CLINIC/BEDSIDE ORDERABLES Final Result * Annual BMP Blood Test (06/25/2024) Pathologist [facility] Annual BMP Blood Test abstracted Result [facility] Provider HEALTH MAINTENANCE Final Result * (ABNORMAL) Lipid panel (06/25/2024) [facility] LDL/HDL Ratio 4 0 - 4 Triglycerides 109 0 - 150 mg/dL Cholesterol 175 0 - 200 mg/dL HDL 41 >=40 mg/dL LDL Cholesterol 113(A) 0 - 100 mg/dL Blood Venous blood specimen / Unknown Historical Provider LAB BLOOD ORDERABLES Mary Ellen l Result * Hepatitis C Screening (09/28/2005) [facility] Hepatitis C Screening abstracted us Historical Provider HEALTH MAINTENANCE Final Result from Last 3 Months or Most Recently Relevant to Health Maintenance Insurance MEDICARE MEDICAID - [place] Care Teams Plant Technician Relationship Specialty Start Date End Date Otoniel Zepeda PA [address] [place] [address] PCP - General Internal Medicine 02/02/21
== END 2024-12-31 18:40 | disposition home or self-care (01) ==
LOC: HO.MRI 18:39
PROVIDERS: PCP Physician Assistant Medical; Visit Provider Neurological Surgery
DX: Z98.1 Arthrodesis status (principal)
CPT/HCPCS: 72141

== ENCOUNTER 2025-01-22 09:44 | Outpatient (AMB) | payer MEDICARE, MEDICAID, SELFPAY ==
--- NOTE | 2025-01-22 09:46 | HO.SPINEOV ---
Intake Visit Reasons: Follow Up MRI Intake Note: Mr. Kelly is here today to F/u on the results to his MRI. Pillow Cleaner Required: No Allergies No Known Allergies Allergy (Verified 01/22/25 09:52) Assessment & Plan Assessment & Plan (1) Neuroforaminal stenosis of cervical spine: Code(s): M48.02 - Spinal stenosis, cervical region Category: Medical Plan Dear colleague, On January 22, 2025 my saw for follow-up Hilario Kelly to discuss the MRI results of the cervical spine of 12/31/2024. The MRI shows [id number]-[id number] right C8 foraminal stenosis that is responsible for his ongoing progressive weakness of his right hand. For detailed exam I refer to my previous note. He states that his symptoms have further worsened since his last visit and therefore I recommended a right C8 foraminotomy to decompress the C8 nerve root in an attempt to stabilize his neurological symptoms. We will choose a posterior approach this time to avoid another diskectomy and fusion. The procedure was discussed and he wants to proceed. He is scheduled for 02/20/2025. I spent 25 minutes in his consult to review imaging and discussing plan of care with the patient in his . Thank you for allowing me take care. Bayron Mullins MD, PhD Spine Fellowship Trained Neurosurgeon Director, [facility] Coding Level of Care Code Est Pt Level 3 (39247) Diagnoses Neuroforaminal stenosis of cervical spine M48.02
--- OUTSIDE RECORDS SUMMARY | 2025-01-22 10:55 | XMS_ITS | Clinical Summary ---
Author Organization 175 [facility] Address 175 [place] [address] Phone Care Team Providers Care Excellence Specialist Name Role Phone Otoniel Zepeda Primary Care Provider +1 [phone] Allergies No known active allergies Medications betamethasone, [...] Amount: 4 tablets 112 tablet 5 Active pantoprazole (PROTONIX) 40 mg EC tablet Take 1 tablet (40 mg total) by mouth 1 (one) time each day. Do not crush, chew, or split. 30 each 5 5 Active pantoprazole (PROTONIX) 20 mg EC tablet Take 1 tablet (20 mg total) by mouth 1 (one) time each day. 4 01/07/20 25 Discontinu ed(Dose adjustment ) oxyCODONE-acet aminophen (PERCOCET) 5-325 mg per tablet Take 1 tablet by mouth every 6 (six) hours if needed for severe pain. Max Daily Amount: 4 tablets 112 tablet 5 12/31/19 25 Discontinu ed(Reorder ) Active Problems Problem Noted Date Diagnosed Date Numbness and tingling in right hand 11/06/2024 Gastroesophageal reflux disease without esophagi tis [...] Encounters Date Type Department Care Team Description 01/21/2025 3:00 PM EDT Office Visit Orthopedic Surgery [address] [place] [phone] Arely Rodrigues MD Numbness and tingling in right hand (Primary Dx); Cervical spinal stenosis 01/06/2025 9:30 AM EDT Office Visit [address] [phone] Annelise Novak PA Essential hypertension, benign (Primary Dx); Pure hypercholesterolemia; Cervical spinal stenosis; Encounter for long-term current use of medication; Gastroesophageal reflux disease without esophagitis 12/17/2024 Telephone Orthopedic Surgery [address] [phone] Arely Rodrigues MD 12/10/2024 2:00 PM EST Office Visit [address] [phone] Arely Rodrigues MD Cervical spinal stenosis (Primary Dx); Numbness and tingling in both hands 11/05/2024 2:00 PM EST Office Visit Orthopedic [address] [phone] Arely Rodrigues MD Numbness and tingling in both hands (Primary Dx); Numbness and tingling in right hand from Last 3 Months Immunizations Name Administration Dates Next Due Tdap Tetanus diptheria acell ular pertussis (Boostrix; Adacel) 7yo and older 10/08/2024,06/03/2013 Surgical History Surgery Date Site/Laterality Comments COLONOSCOPY W/ BIOPSIES 02/04/2010 PROCEDURE: [place] COLONOSCOPY STOMA W/BIOPSY SINGLE/MULTIPLE; COMMENT: Up to [...] otherwise negative. OTHER SURGICAL HISTORY 2015 PROCEDURE: [place] COLECTOMY PARTIAL W/ANASTOMOSIS FLEXIBLE SIGMOIDOSCOPY 08/07/2018 PROCEDURE: [place] SIGMOIDOSCOPY FLX DX W/COLLJ SPEC BR/WA IF PFRMD; COMMENT: tics and hemorrhoids OTHER SURGICAL HISTORY 11/15/2019 PROCEDURE: [place] ARTHRD ANT INTERBODY MIN DSC CRV BELOW [...] Sign Reading Time Taken Comments Blood Pressure 124/68 01/06/2025 9:36 AM EDT Pulse 94 01/06/2025 9:36 AM EDT Temperature 36.7 ??C (98.1 ??F) 01/06/2025 9:36 AM ED T Respiratory Rate 16 10/08/2024 8:45 AM EST Oxygen Saturation 98% 10/08/2024 8:45 AM EST Inhaled Oxygen Concentration - - Weight 104 kg (230 lb) 01/21/2025 2:53 PM EDT Height 182.9 cm (6') 01/21/2025 2:53 PM EDT Body Mass Index 31.19 01/21/2025 2:53 PM EDT Plan of Treatment Upcoming Encounters Date Type Department Care Team (Late st Contact Info) Description 04/08/2025 8:30 AM EDT Office Visit Adult Medicine [facility] [address] [place] [address] Otoniel Zepeda, MAURICIO [address] [place] [address] Health Maintenance Due Date Last Done Comments Hepatitis B Vaccines (1 of 3 - 19+ 3-dose series) 1994 Pneumococcal Vaccine: Pediatrics (0 to 5 Years) and At-Risk Patients (6 to 64 Years) (1 of 2 - PCV) 1994 HIV Screening 09/17/2022 Medicare Annual Wellness Visit 09/17/2022 Social Influencers of Health Screening 09/17/2022 COVID-19 Vaccine (3 - 2023-2 5 season) 2024 05/30/2021, 05/09/2021 Hypertension/CHF/CAD Annual BMP Blood Test 06/25/2025 06/25/2024, 06/25/2024 Colorectal Cancer Screening: Colonoscopy 11/18/2025 11/18/2015 Depression Screening 01/06/2026 01/06/2025 Cholesterol Screening (Lipid Panel) 06/25/2029 06/25/2024, 06/25/2024 [...] age to complete this topic Meningococcal B Vaccine Aged Out No l onger eligible based on patient's age to complete this topic RSV Immunization Patients Under 20 months Aged Out No longer eligible based on patient's age to complete this topic Varicella Vaccines Aged Out No longer eligible based on patient's age to complete this topic Procedures Procedure Name Priority Date/Time Associated Diagnosis Comments EXTERNAL MRI REPORT 12/31/2024 EXTERNAL MRI REPORT 12/31/2024 [place] INJECTION CARPAL TUNNEL THERAPEUTIC Routine 11/05/2024 2:00 PM EST Numbness and tingling in right hand ANNUAL BMP BLOOD TEST Routine 06/25/2024 LIPID PANEL Routine 06/25/2024 HEPATITIS C SCREENING Routine 09/28/2005 from Last 3 Months or Most Recently Relevant to Health Maintenance Results * External MRI Report (12/31/2024) Only the most recent of2 resultswithin the time period is included. Anatomical Region Laterality Modality Magnetic Resonan ce Provider [facility]er Onbase IMG MRI PROCEDURES Final Result * [place] INJECTION CARPAL TUNNEL THERAPEUTIC (11/05/2024 2:00 PM [...] ?? Verbal ??Pre-procedure timeout performed: yes ?? Arely Rodrigues MD IN CLINIC/BEDSIDE ORDERABLES Final Result * Annual BMP Blood Test (06/25/2024) Annual BMP Blood Test abstracted [facility] Provider HEALTH MAINTENANCE Final Result * (ABNORMAL) Lipid panel (06/25/2024) LDL/HDL Ratio 4 0 - 4 Triglycerides 109 0 - 150 mg/dL Cholesterol 175 0 - 200 mg/dL HDL 41 >=40 mg/dL LDL Cholesterol 113(A) 0 - 100 mg/dL Blood Venous blood specimen / Unknown us Historical Provider LAB BLOOD ORDERABLES Mary Ellen l Result * Hepatitis C Screening (09/28/2005) Hepatitis C Screening abstracted Historical Provider HEALTH MAINTENANCE Final Result from Last 3 Months or Most Recently Relevant to Health Maintenance Insurance MEDICARE MEDICAID - [place] Care Teams Excellence Specialist Relationship Specialty Start Date End Date Otoniel Zepeda PA [address] [place] [address] PCP - General Internal Medicine 02/02/21
--- OUTSIDE RECORDS SUMMARY | 2025-01-22 10:55 | XMS_ITS | Encounter Summary ---
Author Organization [facility] Address [address] [place] [address] Care Team Providers Care Analytical Chemistry Teacher Name Role Phone Otoniel Zepeda Primary Care Provider +1 -[phone] Reason for Visit * Reason Comments Follow-up Pain, numbness/tingl ing; limited strength Encounter Details Date Type Department Care Team ([facility] st Contact Info) Description 01/21/2025 3:00 PM EDT Office Visit Orthopedic Surgery - [place] 175 [facility] [address] [place] [phone] Arely Rodrigues MD 175 [facility] [address] [place] [phone] Numbness and tingling in right hand (Primary Dx); Cervical spinal stenosis Social History Tobacco Use Types Packs/Day Years [...] - Inhaled Oxygen Concentration - - Weight 104 kg (230 lb) 01/21/2025 2:53 PM EDT Height 182.9 cm (6') 01/21/2025 2:53 PM EDT Body Mass Index 31.19 01/21/2025 2:53 PM EDT documented in this encounter Progress Notes * Arely Rodrigues MD - 01/21/2025 3:00 PM EDT CHIEF COMPLAINT/REASON FOR VISIT: Numbness and weakness in the right hand SUBJECTIVE: Patient was last seen on December 10. The patient had presented with numbness and tingling in the hand along with some weakness. He had undergone a prior neck surgery. That had cleared up his left arm symptoms but then he had these issues on the right. When I saw him his complaints had been more pronounced than what I would expect for carpal tunnel. An injection did not make much difference. He also had some provocative signs with neck motion and so he has a pending visit tomorrow with Dr. Mullins. OBJECTIVE: Patient continues to have intact flexion [...] he has in his fingers any worse. When I have the patient tilts his head to the right and then pushed down mildly on top of the head that causes some tingling down the arm. ASSESSMENT: 1. Numbness and tingling in right hand 2. Cervical spinal stenosis Patient likely has radiculopathy. Will see what tomorrow's visit with Dr. St reveals. I be happy to see the patient back if there are any lingering symptoms but again I think primarily this isrelated to his neck and not to local compression of the carpal canal. PLAN: Patient will call and let me know how he is doing or if there is anything else he needs. Arely Rodrigues MD Past Medical History: Diagnosis Date Family history of early CAD DX:Family history of early CAD History of colonoscopy 11/18/2015 DX:History of colonoscopy; COMMENT: Difficult colonoscopy 11/18/2015; moderate sedation in adequate;needs monitored anesthesia care. Hyperlipidemia DX:Hyperlipidemia Current Outpatient Medications: amLODIPine (NORVASC) 10 mg tablet, Take 1 tablet (10 mg total) by mouth 1 (one) time each day., Disp: , Rfl: atorvastatin (LIPITOR) 80 mg tablet, Take 1 tablet (80 mg total) by mouth 1 (one) time each day., Disp: , Rfl: betamethasone, augmented, (DIPROLENE-AF) 0.05 % cream, Apply to affected areas up to twice a day sparingly. Do not use this medication for more than 2 weeks straight., Disp: , Rfl: fluticasone propionate (FLONASE) 50 mcg/actuation nasal spray, 2 Sprays by Nasal route daily., Disp: , Rfl: gabapentin (NEURONTIN) 300 mg capsule, Take 1 capsule (300 mg total) by mouth 3 (three) times a day., Disp: , Rfl: ketoconazole (NIZORAL) 2 % shampoo, Apply to affected areas while showering twice weekly as needed., Disp: , Rfl: losartan (COZAAR) 25 mg tablet, Take 1 tablet (25 mg total) by mouth 1 (one) time each day., Disp: , Rfl: oxyCODONE-acetaminophen (PERCOCET) 5-325 mg per tablet, Take 1 tablet by mouth every 6 (six) hours if needed for severe pain. Max Daily Amount: 4 tablets, Disp: 112 tablet, Rfl: 0 pantoprazole (PROTONIX) 40 mg EC tablet, Take 1 tablet (40 mg total) by mouth 1 (one) time each day. Do not crush, chew, or split., Disp: 30 each, Rfl: 5 documented in this encounter Plan of Treatment Upcoming Encounters Date Type Department Care Team (Late st Contact Info) Description 04/08/2025 8:30 AM EDT Office Visit Adult Medicine [facility] [address] [place] [address] Otoniel Zepeda PA [address] [place] [address] documented as of this encounter Visit Diagnoses Diagnosis Numbness and tingling in right hand- Primary Disturbance of skin sensation Cervical spinal stenosis Spinal stenosis in cervical region documented in this encounter Additional Health Concerns Assessment Noted Time PHQ-9 Depression Total Score: 0 01/07/20 25 9:35 AM EDT documented as of this encounter Care Teams Analytical Chemistry Teacher Relationship Specialty Start Date End Date Otoniel Zepeda PA [address] [place] [address] PCP - General Internal Medicine 02/02/21 documented as of this encounter
== END 2025-01-22 10:20 | disposition home or self-care (01) ==
LOC: HO.HNS 09:44
PROVIDERS: PCP Physician Assistant Medical; Visit Provider Neurological Surgery
DX: M48.02 Spinal stenosis, cervical region (principal)
CPT/HCPCS: 99213

== ENCOUNTER → 2025-01-22 09:44 | Outpatient (BNVA) | payer MEDICARE, MEDICAID, SELFPAY | PROVIDERS: PCP Physician Assistant Medical; Visit Provider Neurological Surgery | DX: M48.02 Spinal stenosis, cervical region (principal) | CPT/HCPCS: 99212 ==

== ENCOUNTER 2025-02-27 09:30 | Day surgery (SDC) | payer MEDICARE, MEDICAID, SELFPAY ==
[2025-02-12 10:07] VITALS: BP 143/77; PULSE 86; RESP 18; O2SAT 98; BMI 31.3
[2025-02-27] VITALS (7 sets, daily range): BP systolic 139–158; BP diastolic 84–95; PULSE 81–101; RESP 16–18; TEMP 36.3–36.8; O2SAT 97–100; BMI 31.3
--- NOTE | ~2025-02-27 | FL_ITS ---
EXAMINATION: FL GUIDANCE ONLY HISTORY: RIGHT C8 FORAMINOTOMY COMPARISON: Correlation is made with plain films of the cervical spine dated 08/15/2024. TECHNIQUE: Fluoroscopy time: 19.5 seconds. Cumulative Dose: 6.67 mGy. DAP: 0.9467 mGym2 Images: 2. FINDINGS: Fluoroscopic spot films of the cervical spine were obtained. FL/FL guidance in OR IMPRESSION: Fluoroscopy during procedure. Please see procedure report for additional information. Electronically signed by: Carter Jett MD 02/27/2025 01:55 PM EDT
--- NOTE | 2025-02-27 10:04 | MHC.SHP ---
Pre-Procedural Eval Section A - 24 Hr Update-Section A only Date of Service: 02/27/25 The patient is an INPATIENT: No Section B - Complete if H&P > 30 days Chief Complaint: Spinal stenosis, cervical region Details of Present Illness: Right arm weakness Allergies: Allergies Allergy/AdvReac Type Severity Reaction Status Date / Time No Known Allergies Allergy Verified 01/22/25 09:52 Review of Systems Sugical H&P ROS: Negative: Constitution Exam Surgical H&P Exam: Significant Findings: Neurological (Atrophy right hand) Plan Diagnosis/Plan: Unchanged I have reviewed the history and physical and performed a pertinent physical examination on my patient. No changes have occurred unless specified. Right C8 foraminotomy Time Spent With Patient Time: Total time managing care of this patient today ___5_ minutes.
[2025-02-27] MEDS: Gabapentin 300 MG CAPSULE PO (10:25)
[2025-02-27] MEDS: methocarbamoL 750 MG TABLET PO (10:25)
[2025-02-27] MEDS: Lactated Ringers 1,000 ML 100 ML IVCONT (10:35)
--- NOTE | 2025-02-27 11:43 | HO.ANESPROP2 ---
Documented by User: Tatiana Funes NP 02/12/25 10:31 HPI - Anesthesia Eval Consult details Narrative: 49yo M for Right Right C8 Foraminotomy, 02/27/25 s/p C6-7 Cervical Total Disc Arthroplasty 05/2024 with GETA - no anesthetic issues per patient RADHA: No CPAP Smoker: ~ 6 cigs daily ETOH: 6 beers daily. Instructed slow decrease preop. GERD: ppi covers (recent increase in dose) PMFSH Active Problems Active Problems: All Active Problems Status post cervical spinal fusion (Acute) Neuroforaminal stenosis of cervical spine (Acute) Cervical radiculopathy (Acute) Past Medical History Medical History (Updated 02/12/25 @ 10:03 by Kina Cosby RN) Alcohol use disorder Eczema Sleep apnea Tobacco use disorder GERD (gastroesophageal reflux disease) Hx of flexible sigmoidoscopy Diverticulitis Elevated cholesterol HTN (hypertension) Family History Family history of problems with anesthesia: No Surgical History Surgical History (Updated 02/11/25 @ 07:56 by Kina Cosby RN) Hx of cervical spine surgery Hx of cervical discectomy H/O colonoscopy History of colon resection Hx of hand surgery Hx of fusion of cervical spine History of Problems with Anesthesia: No Social History Social History Are you a primary health care law specialist to a significant other at home: No Do you presently have visiting nurse or other home services: No Patient Tobacco Use Status: Current everyday Tobacco user Tobacco use type: Cigarette Cigarettes Per Day: 6 Years Smoked: 30 Use of substances other than those prescribed or required for medical reasons: Yes Substance Use Type Other:: smokes Substance Use Frequency: Occasionally Have you been hit, kicked, punched, or otherwise hurt by someone within the past year? If so, by whom?: No Spiritual Healthcare Practices: no Yarsanism Healthcare Practices: no Cultural Healthcare Practices: no Are you DNR?: No Advance Directives Information Provided: Yes (as above noted) Advance Directives on File: No Poor oral hygiene: No Meds Allergies Allergy/AdvReac Type Severity Reaction Status Date / Time No Known Allergies Allergy Verified 01/22/25 09:52 Home Medications ?Medication ?Instructions ?Recorded ?Confirmed ?Last Taken ?Type amlodipine 10 mg tablet 10 mg PO QAM 05/22/24 02/12/2525 History atorvastatin 80 mg tablet 80 mg PO QAM 05/22/24 02/12/25 02/27/25 History cyclobenzaprine 10 mg tablet 10 mg PO TID PRN muscle spasm 05/22/24 02/12/25 Unknown History fluticasone propionate 50 2 spray intranasal QAM PRN Nasal 05/22/24 02/12/25 Unknown History mcg/actuation nasal Congestion spray,suspension gabapentin 300 mg capsule 300 mg PO BID 05/22/24 02/12/25 Unknown History losartan 25 mg tablet 25 mg PO QAM 05/22/24 02/12/25 Unknown History oxycodone-acetaminophen 5 mg-325 1 tab PO Q6H PRN Pain 05/22/24 02/12/25 06/06/24 History mg tablet betamethasone dipropionate 0.05 % 1 appl topical BID 05/23/24 02/12/25 Unknown History topical cream pantoprazole 40 mg tablet,delayed 40 mg PO QAM 02/12/25 02/12/25 Unknown History release Exam Height,Weight and Vital Signs: Height 6 ft Weight 104.78 kg Last Vital Signs Pulse 86 02/12/25 10:07 Resp 18 02/12/25 10:07 BP 143/77 H 02/12/25 10:07 Pulse Ox 98 02/12/25 10:07 O2 Del Method Room Air 02/12/25 10:07 Pertinent Lab Results Pertinent Lab Results: Lab Results 05/23/24 Range/Units 10:50 WBC 10.6 (4.8-10.8) X10*3/uL RBC 5.00 (4.60-5.80) X10*6/uL Hgb 14.8 (14.0-18.0) g/dl Hct 44.0 (42.0-52.0) % MCV 88.0 (80.0-98.0) fL MCH 29.6 (27.0-33.0) pg MCHC 33.6 (31.0-36.0) g/dl RDW 14.8 (11.0-16.0) % Plt Count 353 (160-400) X10*3/uL MPV 10.3 (9.4-12.4) fL Absolute Nucleated RBC 0.000 (0.0-0.012) X10*3/uL Nucleated RBC % (auto) 0.0 (0.0-0.2) /100WBC Sodium 139 (135-145) mmol/L Potassium 4.1 (3.3-5.1) mmol/L Chloride 104 (96-108) mmol/L Carbon Dioxide 28 (22-29) mmol/L Anion Gap 11 L (12-20) BUN 12 (9-16) mg/dL Creatinine 0.91 (0.5-1.4) mg/dL Estim Creat Clear Calc 121.5 Estimated GFR > 60 Random Glucose 100 (60-115) mg/dL Calcium 9.8 (8.4-10.2) mg/dL Narrative Narrative: EKG 05/2024 Vent. Rate : 066 BPM Atrial Rate : 066 BPM P-R Int : 140 ms QRS Dur : 070 ms QT Int : 374 ms P-R-T Axes : 061 059 063 degrees QTc Int : 392 ms Normal sinus rhythm Normal ECG No previous ECGs available Airway Mallampati Class: II TM Dist: >3cm Neck ROM: Limited Partial: Upper and Lower Heart: RRR Lungs: CTAB Assessment and Plan Assessment Anesthesia Assessment: Anesthesia Plan Discussed and PAT Visit Final Anesthetic Review Family History of Problems with Anesthesia: No History of Problems with Anesthesia: No Documented by User: Jeri Werner DO 02/27/25 11:47 [facility] Past Medical History Medical History (Updated 02/12/25 @ 10:03 by Kina Cosby, SHASHANK) Alcohol use disorder Eczema Sleep apnea Tobacco use disorder GERD (gastroesophageal reflux disease) Hx of flexible sigmoidoscopy Diverticulitis Elevated cholesterol HTN (hypertension) Family History Family history of problems with anesthesia: No Surgical History Surgical History (Updated 02/11/25 @ 07:56 by Kina Cosby, SHASHANK) Hx of cervical spine surgery Hx of cervical discectomy H/O colonoscopy History of colon resection Hx of hand surgery Hx of fusion of cervical spine History of Problems with Anesthesia: No Social History Social History Are you a primary health care law specialist to a significant other at home: No Do you presently have visiting nurse or other home services: No Patient Tobacco Use Status: Current everyday Tobacco user Tobacco use type: Cigarette Cigarettes Per Day: 6 Years Smoked: 30 Use of substances other than those prescribed or required for medical reasons: Yes Substance Use Type Other:: smokes Substance Use Frequency: Occasionally Have you been hit, kicked, punched, or otherwise hurt by someone within the past year? If so, by whom?: No Spiritual Healthcare Practices: no Yarsanism Healthcare Practices: no Cultural Healthcare Practices: no Are you DNR?: No Advance Directives Information Provided: Yes (as above noted) Advance Directives on File: No Poor oral hygiene: No Meds Allergies Allergy/AdvReac Type Severity Reaction Status Date / Time No Known Allergies Allergy Verified 01/22/25 09:52 Home Medications ?Medication ?Instructions ?Recorded ?Confirmed ?Last Taken ?Type amlodipine 10 mg tablet 10 mg PO QAM 05/22/24 02/12/25 02/27/25 History atorvastatin 80 mg tablet 80 mg PO QAM 05/22/24 02/12/25 02/27/25 History cyclobenzaprine 10 mg tablet 10 mg PO TID PRN muscle spasm 05/22/24 02/12/25 Unknown History fluticasone propionate 50 2 spray intranasal QAM PRN Nasal 05/22/24 02/12/25 Unknown History mcg/actuation nasal Congestion spray,suspension gabapentin 300 mg capsule 300 mg PO BID 05/22/24 02/12/25 Unknown History losartan 25 mg tablet 25 mg PO QAM 05/22/24 02/12/25 Unknown History oxycodone-acetaminophen 5 mg-325 1 tab PO Q6H PRN Pain 05/22/24 02/12/25 06/06/24 History mg tablet betamethasone dipropionate 0.05 % 1 appl topical BID 05/23/24 02/12/25 Unknown History topical cream pantoprazole 40 mg tablet,delayed 40 mg PO QAM 02/12/25 02/12/25 Unknown History release Exam Exam Date and Time: 02/28/52 1143 Height,Weight and Vital Signs: Height 6 ft Weight 104.78 kg Last Vital Signs Pulse 86 02/12/25 10:07 Resp 18 02/12/25 10:07 BP 143/77 H 02/12/25 10:07 Pulse Ox 98 02/12/25 10:07 O2 Del Method Room Air 02/12/25 10:07 Vital Signs Pulse Rate 86 02/12/25 10:07 Respiratory Rate 18 02/12/25 10:07 Blood Pressure 143/77 H 02/12/25 10:07 Pulse Oximetry 98 02/12/25 10:07 Oxygen Delivery Method Room Air 02/12/25 10:07 Temperature 98.2 F 02/27/25 10:12 Pulse Rate 101 H 02/27/25 10:12 Respiratory Rate 16 02/27/25 10:12 Blood Pressure 158/95 H 02/27/25 10:12 Pulse Oximetry 99 02/27/25 10:12 Oxygen Delivery Method Room Air 02/27/25 10:12 Airway Mallampati Class: II TM Dist: >3cm Neck ROM: Limited Partial: Upper and Lower Heart: S1S2 Assessment and Plan Assessment Anesthesia Assessment: Anesthesia Plan Discussed and Chart Reviewed Final Anesthetic Review Family History of Problems with Anesthesia: No History of Problems with Anesthesia: No NPO: Yes ASA Class: III Final Preanesthetic Review: No Changes in Pt Med Stat, Meds/Allgs Chart Reviewed, Consent Obtained/Reviewed and Anes Risks/Benef Reviewed Patient Risk: Low Procedure Risk: Intermediate Anesthetic Plan Anesthetic Plan: GA and Agree w/ Assess. and Plan Disposition: Standard PACU
[2025-02-27] MEDS: ceFAZolin Sodium/Dextrose,Iso 2 GM/50 ML PIGGYBACK IV (12:24)
[2025-02-27] MEDS: Acetaminophen 1,000 MG/100 ML PIGGYBACK 400 MG IV (13:45)
--- NOTE | 2025-02-27 13:52 | PM.DS ---
DS: Providers Provider Date of Service: 02/27/25 Date of discharge: 02/27/25 Primary care physician: MAURICIO Rocah DS: Summary Time Attestation Discharge Coordination Time (in mins): 12 Quality: Safe Use of Opioids Does Pt have an Active Cancer Diagnosis on the Problem List?: No Quality: Stroke Does the patient have a stroke diagnosis?: No Physical Exam Vital Signs: Vital Signs: Last Vital Signs Temp 98.2 F 02/27/25 10:12 Pulse 101 H 02/27/25 10:12 Resp 16 02/27/25 10:12 BP 158/95 H 02/27/25 10:12 Pulse Ox 99 02/27/25 10:12 O2 Del Method Room Air 02/27/25 10:12 BMI result Body Mass Index 31.3 Discharge Plan Discharge Patient Disposition: Home, Self-Care Referrals: Otoniel Zepeda PA [Primary Care Provider] - 1 Week Discharge Medications: New oxycodone 5 mg tablet 5 mg PO Q6H PRN (Reason: pain) Qty: 30 0RF Rx Instructions: Partial Fill upon patient request. sulfamethoxazole-trimethoprim [Bactrim DS] 800-160 mg tablet 1 tab PO BID 2 Days Qty: 4 0RF Continued cyclobenzaprine 10 mg tablet 10 mg PO TID PRN (Reason: muscle spasm) atorvastatin 80 mg tablet 80 mg PO QAM amlodipine 10 mg tablet 10 mg PO QAM losartan 25 mg tablet 25 mg PO QAM gabapentin 300 mg capsule 300 mg PO BID fluticasone propionate 50 mcg/actuation spray,suspension 2 spray intranasal QAM PRN (Reason: Nasal Congestion) betamethasone dipropionate 0.05 % cream 1 appl topical BID pantoprazole 40 mg tablet,delayed release (DR/EC) 40 mg PO QAM Held oxycodone-acetaminophen 5-325 mg tablet 1 tab PO Q6H PRN (Reason: Pain) Hold Instructions: Resume on 03/13/25. Preop Rx Discharge Orders: Discharge Order (Routine); Ordered 02/27/25 Ordered By: Andrei Hunter Diet: Advance to usual diet Activity on Discharge: As tolerated Activity Restrictions/Additional Instructions: After your spinal surgery we ask you to observe the following restrictions/guidelines: Activity: It is normal to feel some discomfort as you increase your activity, but that will improve with time. We ask you avoid heavy lifting or acitivities that cause pain. As a general rule, 8lbs is a safe limit for lifting right after surgery. Walk as much as you feel comfortable but not to exhaustion. You will feel extra tired the first few days after surgery. Stay well hydrated. It is OK to walk up and down stairs You may return to driving when you are off narcotics (such as vicodin, oxycodone, dilaudid, etc), and you are back to normal functional capacity. If you have any concerns please check with office before driving. Return to work is specific to each patient and each surgery, so please speak with your doctor/PA at first follow up. Please bring paperwork such as FMLA at that time if you need it filled out. Medications: We sent in a short course of Bactrim which we use for surgical site infection prophylaxis. Please complete the full course of this medication. We recommend you take 1,000mg Tylenol every 8 hours for the first few weeks after surgery, if you do not have any liver issues and can tolerate this medication. Do not exceed 4,000mg daily. We will give you a short supply of narcotics after surgery (usually one weeks worth). If you need more please call the office but do not use more than prescribed. You will need to give our office 48 hours notice if you need narcotics refilled and we do not fill narcotics on weekends or evenings. If you are on a narcotic, it is a good idea to take a stool softener such as colace or senna to avoid constipation If you take blood thinner such as aspirin, Plavix, Coumadin, Effient, Eliquis etc for conditions such as Afib, DVT, Pulmonary embolus, coronary disease, stents etc please speak with your surgeon about specific details as to when you can resume these medications. You can resume NSAIDs on post op day 1 (eg: Motrin, Naproxen, etc). Follow up: Please call the office, , after surgery to arrange a 3 week follow up for wound check. Wound Care: You may remove your dressing on the first day after surgery. ?You may ?leave open to air. Please do not remove the steri strips underneath. they will fall off on their own in one week. IT IS NORMAL FOR THE WOUND TO OOZE OR BE BLOODY FOR A FEW DAYS AFTER SURGERY. ?IF THIS HAPPENS JUST PLACE NEW DRESSING OVER IT TO AVOID STAINING CLOTHES. You may shower on post op day # 1 We ask that you do not let the water soak the wound. If it does get wet, just towel dry lightly. Please do not scrub your incision or place any type of chemical/ointment on the wound. No tub baths, pools or jacuzzis for one month. If you have any leaking or redness from your wound, or fevers, please call the office. Print Language: Croatian
--- NOTE | 2025-02-27 14:27 | P.OP_ITS ---
Operative Note Operative Note Date of Service: 02/27/25 Narrative: Preoperative Diagnosis: Right C8 cervical radiculopathy with progressive hand weakness Operation: C7 laminotomy and C8 foraminotomy with microscope Consent Informed Consent was obtained for this operation. I have explained the nature, purpose and benefits of the operation. I have discussed the risks and benefit of the operation including possible complications or adverse events with patient/family. Alternative(s) were discussed with the patient with their relative benefits and risks as well as the consequences of not accepting the operation were included in obtaining consent. Surgeon: MENDEL NO MD, PHD Procedure Assisted By: MAURICIO Becerra Description of Procedure This patient is suffering from progressive hand weakness. He underwent in total disc arthropathy C6-7 for left arm pain which disappeared but his right hand persisted. We knew from the MRI that he also had C8 nerve compression right side and therefore I offered him a C8 foraminotomy to avoid another fusion or artificial disc. The patient was offered a decompression. The procedure complications were explained. The patient was consented. The patient was brought to the operating room and endotracheally intubated. The patient was turned in prone position on the gel rolls. Prep and drape was done followed by timeout. a midcervical incision was made. Dissection was carried down the midline to avoid blood loss. The paravertebral muscles were released to expose the right T1 C7 lamina in preparation for the foraminotomy. The microscope was brought in. A small C7 laminotomy was done followed by resection of the inferior articular process of C7. The origin of the C8 nerve was identified. The inferior articular process was drilled down further after which with a 1. Kerrison a foraminotomy was done to decompress the nerve root. A nerve hook could be easily passed over the nerve root a sign of adequate decompression. The physician veterinary assistant technician performed hemostasis and closed incision. arnaldo were used to approximate the incision. An op-site with tegaderm was used to cover the incision. All sponge needle counts were correct. Patient was extubated and transported in stable is to recovery room. Anesthesia: General Estimated Blood Loss (ml): Minimal Duration of Surgery: 60 Minutes Postoperative Plan: Discharge to home
== END 2025-02-27 15:19 | disposition home or self-care (01) ==
PROVIDERS: PCP Physician Assistant Medical; Visit Provider Neurological Surgery
PROC: (CPT 63045; principal; 2025-02-27 12:50)
DX: M50.13 Cervical disc disorder with radiculopathy, cervicothoracic region (principal); M99.61 Osseous and subluxation stenosis of intervertebral foramina of cervical region; R53.1 Weakness; G47.33 Obstructive sleep apnea (adult) (pediatric)
CPT/HCPCS: 63045; J0131; J0690; J1100; J1885; J2003; J2250; J2371; J2405; J2704; J3010

== ENCOUNTER → 2025-02-27 09:30 | Outpatient (BNV) | payer MEDICARE, MEDICAID, SELFPAY | PROVIDERS: PCP Physician Assistant Medical; Visit Provider Physician Assistant | DX: M54.12 Radiculopathy, cervical region (principal) | CPT/HCPCS: 63045; 99499 ==

== ENCOUNTER 2025-03-12 09:29 | Outpatient (AMB) | payer MEDICARE, MEDICAID, SELFPAY ==
--- NOTE | 2025-03-12 09:32 | A.SPINEOV_ITS ---
Intake Visit Reasons: 1st post op Intake Note: Mr. Kelly is here today for his 1st post op. 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 Mullins. To recap he was having progressive right hand weakness prior to surgery. Today, he states that he has not attempted to engage full strength in his hand for fear of injuring something. However, he does feel his right hand is subjectively better. He did state that he is having quite a bit of posterior neck pain from the surgery. Other than that he seems to be doing well. 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 They would like to reopen soon. I advised them that he should not be doing more than about 4-6 hours of work per day, and that work should be light-moderate duty with a weight restriction of 12 lb for the time being. Exam: The patient has full 5/5 strength in his upper extremities. His interossei testing has notably improved since he was examined postoperatively. When I examined him in PACU he still had about 4/5 strength, which already was an improvement. He now can engage full strength and resist strength testing.I removed 5 arnaldo overlying his incision site. I would like to follow up with Hilario again in 6 weeks for his 2nd postoperative visit. Andrei Mullins MD,PhD [facility] Coding Level of Care Code Global (67404) Diagnoses Status post cervical spinal fusion Z98.1
--- OUTSIDE RECORDS SUMMARY | 2025-03-12 09:51 | XMS_ITS | Clinical Summary ---
Author Organization [address] [facility] Address [address] [place] [address] Phone Care Team Providers Care Test Baker Name Role Phone Otoniel eZpeda Primary Care Provider [phone] Allergies No known active allergies Medications betamethasone, [...] showering twice weekly as needed. 4 Active pantoprazole (PROTONIX) 40 mg EC tablet Take 1 tablet (40 mg total) by mouth 1 (one) time each day. Do not crush, chew, or split. 30 each 5 5 Active oxyCODONE-acet aminophen (PERCOCET) 5-325 mg per tablet Take 1 tablet by mouth every 6 (six) hours if needed for severe pain. Max Daily Amount: 4 tablets 112 tablet 5 Active oxyCODONE-acet aminophen (PERCOCET) 5-325 mg per tablet Take 1 tablet by mouth every 6 (six) hours if needed for severe pain. Max Daily Amount: 4 tablets 112 tablet 5 02/27/20 25 Discontinu ed(Reorder ) Active Problems Problem [...] PM EDT Office Visit Orthopedic Surgery - [address] [place] [address] Arely Rodrigues MD Numbness and tingling in right hand (Primary Dx); Cervical spinal stenosis 01/06/2025 9:30 AM EDT Office Visit [address] [phone] Annelise Novak PA Essential hypertension, benign (Primary Dx); Pure hypercholesterolemia; Cervical spinal stenosis; Encounter for long-term current use of medication; Gastroesophageal reflux disease without esophagitis 12/17/2024 Telephone Orthopedic Surgery [address] [address] Arely Rodrigues MD 12/10/2024 2:00 PM EST Office Visit Orthopedic Surgery [facility] [address] [facility] [address] [place] [address] Arely Rodrigues MD Cervical spinal stenosis (Primary Dx); Numbness and tingling in both hands from Last 3 Months Immunizations Name Administration Dates Next Due Tdap Tetanus diptheria acell ular pertussis (Boostrix; Adacel) 7yo and older 10/08/2024,06/03/2013 Surgical History Surgery Date Site/Laterality Comments COLONOSCOPY W/ BIOPSIES 02/04/2010 PROCEDURE: FL COLONOSCOPY STOMA W/BIOPSY SINGLE/MULTIPLE; COMMENT: Up to [...] otherwise negative. OTHER SURGICAL HISTORY 2015 PROCEDURE: FL COLECTOMY PARTIAL W/ANASTOMOSIS FLEXIBLE SIGMOIDOSCOPY 08/07/2018 PROCEDURE: FL SIGMOIDOSCOPY FLX DX W/COLLJ SPEC BR/WA IF PFRMD; COMMENT: tics and hemorrhoids OTHER SURGICAL HISTORY 11/15/2019 PROCEDURE: FL ARTHRD ANT INTERBODY MIN DSC CRV BELOW [...] Date Smoking Tobacco: Some Days Cigarettes 0.3 22 Started: 2003 Smokeless Tobacco: Never Tobacco Cessation:Ready [...] 8:30 AM EDT Office Visit Adult Medicine [facility] [address] [place] [address] Otoniel Zepeda PA [address] [place] [address] Health Maintenance Due Date Last Done Comments [...] Name Priority Date/Time Associated Diagnosis Comments EXTERNAL XRAY REPORT 02/27/2025 EXTERNAL XRAY REPORT 02/27/2025 EXTERNAL MRI REPORT 12/31/2024 EXTERNAL MRI REPORT 12/31/2024 ANNUAL BMP BLOOD TEST Routine 06/25/2024 LIPID PANEL Routine 06/25/2024 HEPATITIS C SCREENING Routine 09/28/2005 from Last 3 Months or Most Recently Relevant to Health Maintenance Results * External Xray Report (02/27/2025) Only the most recent of2 resultswithin the time period is included. Anatomical Region Laterality Modality Radiographic Antonette ging Provider [facility] XR PROCEDURES Final Result * External MRI Report (12/31/2024) Only the most recent of2 resultswithin the time period is included. Anatomical Region Laterality Modality Magnetic Resonan ce Provider [facility] MRI PROCEDURES Final Result * Annual BMP Blood Test (06/25/2024) Annual BMP Blood Test abstracted Result [facility] Provider HEALTH MAINTENANCE Final Result * (ABNORMAL) Lipid panel (06/25/2024) LDL/HDL Ratio 4 0 - 4 Triglycerides 109 0 - 150 mg/dL Cholesterol 175 0 - 200 mg/dL HDL 41 >=40 mg/dL LDL Cholesterol 113(A) 0 - 100 mg/dL Blood Venous blood specimen / Unknown Result [facility] Provider LAB BLOOD ORDERABLES Mary Ellen l Result * Hepatitis C Screening (09/28/2005) Hepatitis C Screening abstracted Result [facility] Provider HEALTH MAINTENANCE Final Result from Last 3 Months or Most Recently Relevant to Health Maintenance Insurance MEDICARE MEDICAID - [place] Care Teams Test Baker Relationship Specialty Start Date End Date Otoniel Zepeda PA [address] [place] [address] PCP - General Internal Medicine 02/02/21
== END 2025-03-12 09:52 | disposition home or self-care (01) ==
LOC: HO.HNS 09:29
PROVIDERS: PCP Physician Assistant Medical; Visit Provider Physician Assistant
DX: Z98.1 Arthrodesis status (principal)
CPT/HCPCS: 99024

== ENCOUNTER → 2025-03-12 09:29 | Outpatient (BNVA) | payer MEDICARE, MEDICAID, SELFPAY | PROVIDERS: PCP Physician Assistant Medical; Visit Provider Physician Assistant | DX: Z48.89 Encounter for other specified surgical aftercare (principal); Z98.1 Arthrodesis status; Z98.890 Other specified postprocedural states | CPT/HCPCS: 99212 ==